=== PATIENT | male | born 1945 | race Caucasian/White ===

== ENCOUNTER → 2016-12-08 | Outpatient (CLI) | payer MEDICARE, OTHER ==
[2016-12-08 08:53] LABS: ABSOLUTE BASOPHILS # (AUTO) 0.1 10^3/uL (0.0-0.2); ABSOLUTE EOSINOPHILS # (AUTO) 0.2 10^3/uL (0.0-0.6); ABSOLUTE LYMPHOCYTES (AUTO) 1.1 10^3/uL (0.5-4.7); ABSOLUTE MONOCYTES (AUTO) 0.4 10^3/uL (0.1-1.4); ABSOLUTE NEUT (AUTO) 3.2 10^3/uL (1.7-8.2); BASOPHILS % (AUTO) 1.1 % (0-2); EOSINOPHILS % (AUTO) 4.6 % (0-6); LYMPHOCYTES % (AUTO) 22.4 % (13-45); MEAN CORPUSCULAR HEMOGLOBIN 28.9 pg (27.0-33.4); MEAN CORPUSCULAR HGB CONC 33.4 g/dL (32.0-36.0); MEAN CORPUSCULAR VOLUME 87 fl (80-97); MONOCYTES % (AUTO) 8.7 % (3-13); RED CELL DISTRIBUTION WIDTH 13.4 % (11.5-14.0); SEGMENTED NEUTROPHILS % (AUTO) 63.2 % (42-78)
[2016-12-08 09:19] LABS: ALANINE AMINOTRANSFERASE 25 U/L (21-72); ALBUMIN 4.3 g/dL (3.5-5.0); ALKALINE PHOSPHATASE 68 U/L (38-126); ANION GAP 12 (5-19); ASPARTATE AMINO TRANSFERASE 19 U/L (17-59); BILIRUBIN,TOTAL 0.7 mg/dL (0.2-1.3); BLOOD UREA NITROGEN 14 mg/dL (7-20); CALCIUM 9.7 mg/dL (8.4-10.2); CARBON DIOXIDE 34 mmol/L (22-30); CHLORIDE 100 mmol/L (98-107); CHOLESTEROL 119.27 mg/dL (0-200); CREATININE RESULT 0.99 mg/dL (0.52-1.25); Direct HDL 37 mg/dL (>40); GLUCOSE 93 mg/dL (75-110); POTASSIUM 4.3 mmol/L (3.6-5.0); SODIUM 145.8 mmol/L (137-145); TOTAL PROTEIN 6.8 g/dL (6.3-8.2); TRIGLYCERIDES 129 mg/dL (<150)
[2016-12-08 09:25] LABS: ERYTHROCYTE SEDIMENTATION RATE 16 mm/hr (0-20)
[2016-12-08 09:30] LABS: DIRECT LDL 65 mg/dL (<100)
[2016-12-09 13:38] LABS: JO-1 ANTIBODY <0.2 AI (0.0-0.9)
== END ==
LOC: OD 07:35
DX: E11.9 Type 2 diabetes mellitus without complications (principal); E78.5 Hyperlipidemia, unspecified; D64.9 Anemia, unspecified; G20 Parkinson's disease; G90.3 Multi-system degeneration of the autonomic nervous system; K21.9 Gastro-esophageal reflux disease without esophagitis; Z79.899 Other long term (current) drug therapy
CPT/HCPCS: 36415; 80053; 80061; 82607; 82728; 82746; 83036; 83540; 83550; 84153; 84443; 85025; 85045; 85652; 86225; 86235; 86592

== ENCOUNTER → 2016-12-10 | Outpatient (CLI) | payer MEDICARE, OTHER | LOC: RAD 07:53 | DX: G20 Parkinson's disease (principal) | CPT/HCPCS: 70553; A9577 ==

== ENCOUNTER → 2017-02-11 | Outpatient (CLI) | payer MEDICARE, OTHER ==
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
== END ==
LOC: RAD 08:18
PROVIDERS: ATTEND Specialist
DX: R47.02 Dysphasia (principal); K21.9 Gastro-esophageal reflux disease without esophagitis; J45.909 Unspecified asthma, uncomplicated; E11.9 Type 2 diabetes mellitus without complications; M13.80 Other specified arthritis, unspecified site; Z86.73 Personal history of transient ischemic attack (TIA), and cerebral infarction without residual deficits
CPT/HCPCS: 74230; 92611; G8996; G8997; G8998

== ENCOUNTER → 2017-02-25 | Outpatient (CLI) | payer MEDICARE, OTHER ==
[2017-02-25 08:42] LABS: ANION GAP 13 (5-19); BLOOD UREA NITROGEN 21 mg/dL (7-20); CALCIUM 9.4 mg/dL (8.4-10.2); CARBON DIOXIDE 31 mmol/L (22-30); CHLORIDE 102 mmol/L (98-107); CHOLESTEROL 142.51 mg/dL (0-200); CREATININE RESULT 1.06 mg/dL (0.52-1.25); Direct HDL 43 mg/dL (>40); GLUCOSE 97 mg/dL (75-110); POTASSIUM 4.3 mmol/L (3.6-5.0); TRIGLYCERIDES 159 mg/dL (<150)
[2017-02-25 08:58] LABS: DIRECT LDL 65 mg/dL (<100)
[2017-02-25 09:01] LABS: VLDL CHOLESTEROL 31.8 mg/dL (10-31)
== END ==
LOC: OD 07:33
PROVIDERS: ATTEND Internal Medicine Cardiovascular Disease
DX: I63.9 Cerebral infarction, unspecified (principal); I95.1 Orthostatic hypotension
CPT/HCPCS: 36415; 80048; 80061

== ENCOUNTER 2017-03-23 07:06 | Day surgery (SDC) | payer MEDICARE, OTHER ==
[~2017-03-23 07:06] MED LIST: BUPIVACAINE HCL 0.75% INJ/PF (7.5 MG/1 ML) 10 ML SDV OD PRN; KETOROLAC TROMETHAMINE 0.45% 4 DROP/0.4 ML DROPERETTE OD PRN; LIDOCAINE 4% INJ/PF (40 MG/ML) 5 ML AMPUL OD PRN
[2017-03-23] MEDS ORDERED: PHENYLEPHRINE/KETOROLAC 1%-0.3% 4 ML VIAL ONE (07:35)
[2017-03-23] MEDS ORDERED: CHONDR SU A NA/HYALUR INTRAOC KIT (SURGICARE) ONE (07:36)
[2017-03-23] MEDS: CYCLOPENTOLATE 0.2%/PHENYLEPHRINE 1% OPH SOLN 2 ML OD PRN ×3 (07:46→08:12)
[2017-03-23] MEDS: TROPICAMIDE 1% OPH SOLN 3 ML OD PRN ×3 (07:46→08:13)
[2017-03-23] MEDS: BESIFLOXACIN HCL 0.6% OPH SUSP 5 ML BOTTLE OD PRN ×4 (07:47→09:04)
[2017-03-23] MEDS: TETRACAINE HCL 0.5% OPH SOLN 0.6 ML DROPERETTE OD PRN ×2 (07:48→08:13)
[2017-03-23] MEDS ORDERED: FENTANYL CITRATE INJ/PF 100 MCG/2 ML AMPUL ONE (08:15)
[2017-03-23] MEDS ORDERED: MIDAZOLAM 2 MG/2 ML INJ ONE (08:15)
--- NOTE | 2017-03-23 09:48 | [facility] DISCHARGE SUMMARY E ---
[facility] Discharge Summary NAME: DEANDRE NASH AGE: 71Y ADMITTED: 03/23/2017 DISCHARGED: 03/23/2017 HISTORY: The patient is a 71-year-old gentleman who underwent uneventful cataract extraction with intraocular lens implant of the right eye on 03/23/2017. DISPOSITION: He will be discharged to home. DISCHARGE INSTRUCTIONS: He is instructed to resume preoperative medications, take Tylenol as needed for discomfort, to keep his eye shielded. To use Besivance, Durezol, and Ilevro at 3 p.m. and 8 p.m. Follow up in my office in 1 day. DICTATING PHYSICIAN: MICHELLE BURKS M.D. [id number] PHY#: [id number] ID: [id number] JOB#: [id number] ACCT: [id number] cc:MICHELLE BURKS M.D. >
--- NOTE | 2017-04-02 12:59 | [facility] OPERATIVE REPORT E ---
[facility] Operative Report NAME: DEANDRE NASH AGE: 71Y DATE OF SURGERY: 03/23/2017 ROOM: PREOPERATIVE DIAGNOSIS: CATARACT RIGHT EYE. POSTOPERATIVE DIAGNOSIS: CATARACT RIGHT EYE. PROCEDURE; Phacoemulsification with toric intraocular lens implant, right eye. SURGEON; MICHELLE BURKS MD ANESTHESIA: Topical with MAC. INDICATIONS FOR SURGERY: Difficulty reading small print on medicine bottles and night driving. Best corrected visual acuity 20/40. PROCEDURE: The patient was brought to the Operating Room and under topical anesthesia the 0 ,270 and 180 degrees were marked on the cornea with a marking level. the patient was placed in a recling position. Following tetracaine drops, topical anesthesia was administered. This consisted of instrument wipe pledgets soaked in a solution of 4% Xylocaine mixed with 0.75% Marcaine in a 1:2 ratio. A 2 x 1 cm pledget was placed in the superior fornix. A 1 x 1 cm pledget was placed in the inferior fornix. The eye was patched shut for 5 minutes. The patch was removed. The eye was sterilely prepped and draped in the usual manner. Lid speculum was placed in the eye. The pledgets were removed and 4-0 black silk sutures were placed around the superior and the inferior rectus muscles to be used as traction. A conjunctival peritomy was made at the 135 degree position. Hemostasis was obtained with bipolar cautery. A posterior limbal groove was created using a crescent knife and dissected anteriorly towards the cornea. A sharp point blade was used to create a paracentesis site at the 2 o'clock position. A 2.4-mm keratome was used to enter the anterior chamber through the groove. Viscoelastic was injected into the anterior chamber. An anterior capsulotomy was performed using Utrata forceps in a capsulorrhexis fashion. Hydrodissection and hydrodelineation were performed. Phacoemulsification was performed in [id number] technique. A total of 1 minute 7 seconds phaco time was used. Following this, the I/A unit was used to remove residual cortex. Viscoelastic was injected into the capsular bag. Intraocular lens model [id number], 21.0 diopters, serial number [id number], was placed in the capsular bag and rotated within 10 degrees of the final axis. Final axis was 170 degrees. The I/A unit was used to remove residual viscoelastic. The wound was seen to be watertight under high and low pressure, and no sutures were placed. The intraocular lens was well centered. The pressure was adjusted in the eye to normal pressure. The 4-0 black silk sutures and lid speculum were removed. The eye was shielded after Besivance drops were placed. The patient tolerated the procedure well and was sent to the Recovery Room in good condition. DICTATING PHYSICIAN: MICHELLE BURKS M.D. [id number] PHY#: [id number] ID: [id number] JOB#: [id number] ACCT: [id number] cc:MICHELLE BURKS M.D. > MTDD
== END 2017-03-23 09:54 | disposition home or self-care (01) ==
LOC: SC 07:06
PROVIDERS: ATTEND Ophthalmology
PROC: 08RJ3JZ Replacement of Right Lens with Synthetic Substitute, Percutaneous Approach (ICD-10-PCS; principal; 2017-03-23 08:30)
DX: H25.813 Combined forms of age-related cataract, bilateral (principal); H04.123 Dry eye syndrome of bilateral lacrimal glands; E11.9 Type 2 diabetes mellitus without complications; H35.363 Drusen (degenerative) of macula, bilateral; J45.909 Unspecified asthma, uncomplicated; K21.9 Gastro-esophageal reflux disease without esophagitis; Z79.51 Long term (current) use of inhaled steroids; Z79.02 Long term (current) use of antithrombotics/antiplatelets; Z79.84 Long term (current) use of oral hypoglycemic drugs; Z79.899 Other long term (current) drug therapy
CPT/HCPCS: 66984; 82962; V2787; J2250; J3490 ×3; A9270; J3010; C9447; 142

== ENCOUNTER → 2017-05-19 | Outpatient (CLI) | payer MEDICARE, OTHER ==
[2017-05-20 07:44] LABS: HEPATITIS C VIRUS AB <0.1 s/co ratio (0.0-0.9)
== END ==
LOC: OD 12:00
PROVIDERS: ATTEND Internal Medicine
DX: Z11.59 Encounter for screening for other viral diseases (principal)
CPT/HCPCS: 36415; 86803; 86804

== ENCOUNTER → 2017-09-10 | Outpatient (CLI) | payer MEDICARE, OTHER ==
[2017-09-10 15:15] LABS: BLOOD PARASITE THIN SMEAR PLASMODIUM/BABESIA
[2017-09-11 15:08] LABS: BLOOD PARASITE THICK SMEAR PLASMODIUM/BABESIA
[2017-09-14 11:00] LABS: BLOOD PARASITE SCREEN RESULT PLASMODIUM/BABESIA
== END ==
LOC: LAB 14:05
PROVIDERS: ATTEND Nurse Practitioner Community Health
DX: B54 Unspecified malaria (principal)
CPT/HCPCS: 36415; 87015; 87207

== ENCOUNTER → 2017-10-19 | Outpatient (CLI) | payer MEDICARE, OTHER ==
[2017-10-19 11:15] LABS: ABSOLUTE BASOPHILS # (AUTO) 0.1 10^3/uL (0.0-0.2); ABSOLUTE EOSINOPHILS # (AUTO) 0.3 10^3/uL (0.0-0.6); ABSOLUTE LYMPHOCYTES (AUTO) 1.6 10^3/uL (0.5-4.7); ABSOLUTE MONOCYTES (AUTO) 0.4 10^3/uL (0.1-1.4); ABSOLUTE NEUT (AUTO) 2.9 10^3/uL (1.7-8.2); BASOPHILS % (AUTO) 1.2 % (0-2); HEMATOCRIT 36.7 % (37.9-51.0); HEMOGLOBIN 12.5 g/dL (13.5-17.0); HGB HCT DIFFERENCE 0.8; LYMPHOCYTES % (AUTO) 31.4 % (13-45); MEAN CORPUSCULAR HEMOGLOBIN 28.8 pg (27.0-33.4); MEAN CORPUSCULAR VOLUME 85 fl (80-97); MONOCYTES % (AUTO) 6.9 % (3-13); RED BLOOD COUNT 4.34 10^6/uL (4.35-5.55); RED CELL DISTRIBUTION WIDTH 14.2 % (11.5-14.0); SEGMENTED NEUTROPHILS % (AUTO) 55.5 % (42-78); WHITE BLOOD COUNT 5.2 10^3/uL (4.0-10.5)
[2017-10-19 11:37] LABS: CHOLESTEROL 158.61 mg/dL (0-200); Direct HDL 43 mg/dL (>40); TRIGLYCERIDES 174 mg/dL (<150)
[2017-10-19 11:39] LABS: ALANINE AMINOTRANSFERASE 34 U/L (21-72); ALKALINE PHOSPHATASE 58 U/L (38-126); ANION GAP 11 (5-19); ASPARTATE AMINO TRANSFERASE 26 U/L (17-59); BILIRUBIN,DIRECT 0.2 mg/dL (0.0-0.4); BILIRUBIN,TOTAL 0.5 mg/dL (0.2-1.3); BLOOD UREA NITROGEN 12 mg/dL (7-20); CALCIUM 9.3 mg/dL (8.4-10.2); CARBON DIOXIDE 33 mmol/L (22-30); CHLORIDE 101 mmol/L (98-107); CREATININE RESULT 1.05 mg/dL (0.52-1.25); GLUCOSE 92 mg/dL (75-110); POTASSIUM 3.8 mmol/L (3.6-5.0); SODIUM 144.5 mmol/L (137-145); TOTAL PROTEIN 6.5 g/dL (6.3-8.2)
[2017-10-19 11:47] LABS: DIRECT LDL 84 mg/dL (<100)
[2017-10-19 11:53] LABS: VLDL CHOLESTEROL 34.8 mg/dL (10-31)
[2017-10-20 11:40] LABS: CREATININE URINE 163.7 mg/dL (Not Estab.); MICROALBUMIN URINE 27.6 ug/mL (Not Estab.)
== END ==
LOC: OD 10:13
PROVIDERS: ATTEND Internal Medicine
DX: I10 Essential (primary) hypertension (principal); E11.9 Type 2 diabetes mellitus without complications; E53.8 Deficiency of other specified B group vitamins; E78.5 Hyperlipidemia, unspecified; G20 Parkinson's disease
CPT/HCPCS: 36415; 80053; 80061; 82043; 82570; 82607; 83036; 85025; 86255

== ENCOUNTER 2018-02-08 10:40 | Day surgery (SDC) | payer MEDICARE, OTHER ==
[~2018-02-08 10:40] MED LIST changes: -BUPIVACAINE HCL 0.75% INJ/PF (7.5 MG/1 ML) 10 ML SDV OD PRN; +BUPIVACAINE HCL 0.75% INJ/PF (7.5 MG/1 ML) 10 ML SDV OS PRN; +CHONDR SU A NA/HYALUR INTRAOC KIT (SURGICARE) ONE; +EPINEPHRINE INJ/PF 1 MG/1 ML AMPULE ONE; -KETOROLAC TROMETHAMINE 0.45% 4 DROP/0.4 ML DROPERETTE OD PRN; +KETOROLAC TROMETHAMINE 0.45% 4 DROP/0.4 ML DROPERETTE OS PRN; +LIDOCAINE 1% INJ-PF (10 MG/ML) 30 ML SDV ONE; -LIDOCAINE 4% INJ/PF (40 MG/ML) 5 ML AMPUL OD PRN; +LIDOCAINE 4% INJ/PF (40 MG/ML) 5 ML AMPUL OS PRN
[2018-02-08] MEDS: TROPICAMIDE 1% OPH SOLN 3 ML OS PRN ×3 (11:03→11:26)
[2018-02-08] MEDS: CYCLOPENTOLATE 0.2%/PHENYLEPHRINE 1% OPH SOLN 2 ML OS PRN ×3 (11:03→11:26)
[2018-02-08] MEDS ORDERED: FENTANYL CITRATE INJ/PF 100 MCG/2 ML AMPUL ONE (11:04)
[2018-02-08] MEDS: BESIFLOXACIN HCL 0.6% OPH SUSP 5 ML BOTTLE OS PRN ×3 (11:04→11:57)
[2018-02-08] MEDS ORDERED: MIDAZOLAM 2 MG/2 ML INJ ONE (11:04)
[2018-02-08] MEDS: TETRACAINE HCL 0.5% OPH SOLN 0.6 ML DROPERETTE OS PRN ×2 (11:05→11:27)
--- NOTE | 2018-02-08 12:24 | [facility] DISCHARGE SUMMARY E ---
[facility] Discharge Summary NAME: DEANDRE NASH AGE: 72Y ADMITTED: 02/08/2018 DISCHARGED: FINAL DIAGNOSIS: CATARACT, LEFT EYE. HOSPITAL COURSE: The patient is a 72-year-old gentleman who underwent uneventful cataract extraction with Toric intraocular lens implant, left eye. He will be discharged to home. He is instructed to resume preoperative medications, take Tylenol as needed for discomfort, to keep his eye shielded. Use Besivance, Durezol, and Ilevro at 3 p.m. and 8 p.m. To follow up in my office in 1 day. DICTATING PHYSICIAN: MICHELLE BURKS M.D. [id number] PHY#: [id number] ID: [id number] JOB#: [id number] ACCT: [id number] cc:MICHELLE BURKS M.D. >
--- NOTE | 2018-02-08 12:25 | [facility] OPERATIVE REPORT E ---
[facility] Operative Report NAME: DEANDRE NASH AGE: 72Y DATE OF SURGERY: 02/08/2018 ROOM: [facility] Operative Report PREOPERATIVE DIAGNOSIS: CATARACT, LEFT EYE. POSTOPERATIVE DIAGNOSIS: CATARACT, LEFT EYE. PROCEDURE PERFORMED: PHACOEMULSIFICATION WITH TORIC INTRAOCULAR LENS, LEFT EYE. SURGEON: MICHELLE BURKS MD ANESTHESIA: TOPICAL WITH MAC. INDICATIONS FOR SURGERY: Difficulty with nighttime driving due to glare. Best corrected visual acuity 20/40. PROCEDURE: Prior to the surgery, the patient was placed in the seated position and a 0, 270, and 180 degree axes of the eye were marked using a marking level. Prior to placing the lens implant, the 169-degree axis was marked on the eye and the lens was centered at this axis. The patient was brought to the Operating Room and placed on the operative table. Following tetracaine drops, topical anesthesia was administered. This consisted of instrument wipe pledgets soaked in a solution of 4% Xylocaine mixed with 0.75% Marcaine in a 1:2 ratio. A 2 x 1 cm pledget was placed in the superior fornix. A 1 x 1 cm pledget was placed in the inferior fornix. The eye was patched shut for 5 minutes. The patch was removed. The eye was sterilely prepped and draped in the usual manner. Lid speculum was placed in the eye. The pledgets were removed. 4-0 black silk sutures were placed around the superior and the inferior rectus muscles to be used as traction. A conjunctival peritomy was made at the 10 o'clock position. Hemostasis was obtained with bipolar cautery. A posterior limbal groove was created using a crescent knife and dissected anteriorly towards the cornea. A sharp point blade was used to create a paracentesis site at the 2 o'clock position. A 2.4 mm keratome was used to enter the anterior chamber through the groove. Viscoelastic was injected into the anterior chamber. An anterior capsulotomy was performed using Utrata forceps in a capsulorrhexis fashion. Hydrodissection and hydrodelineation were performed. Phacoemulsification was performed in ynyrex-[id number]-megqfmr technique. A total of 3.51 CDE phaco time was used. Following this, the I/A unit was used to remove residual cortex. Viscoelastic was injected into the capsular bag. Intraocular lens model [id number], 21.0 diopters, serial number [id number] was placed in the capsular bag. The I/A unit was used to remove residual viscoelastic. The wound was seen to be watertight under high and low pressure, and no sutures were placed. The intraocular lens was well centered. The pressure was adjusted in the eye to normal pressure. The 4-0 black silk sutures and lid speculum were removed. The eye was shielded after Besivance drops were placed. The patient tolerated the procedure well and was sent to the Recovery Room in good condition. DICTATING PHYSICIAN: MICHELLE BURKS M.D. DICTATING PHYSICIAN: MICHELLE BURKS M.D. [id number] PHY#: [id number] ID: [id number] JOB#: [id number] ACCT: [id number] cc:MICHELLE BURKS M.D. >
== END 2018-02-08 12:55 | disposition home or self-care (01) ==
LOC: SC 10:40
PROVIDERS: ATTEND Ophthalmology
PROC: 08RK3JZ Replacement of Left Lens with Synthetic Substitute, Percutaneous Approach (ICD-10-PCS; principal; 2018-02-08 12:00)
DX: H25.812 Combined forms of age-related cataract, left eye (principal); Z96.1 Presence of intraocular lens; J45.909 Unspecified asthma, uncomplicated; I10 Essential (primary) hypertension; K21.9 Gastro-esophageal reflux disease without esophagitis; E11.9 Type 2 diabetes mellitus without complications; Z79.84 Long term (current) use of oral hypoglycemic drugs; Z79.51 Long term (current) use of inhaled steroids; Z79.899 Other long term (current) drug therapy
CPT/HCPCS: 66984; 82962; V2787; J3490 ×4; A9270; J0171; J3010; 142; J2250

== ENCOUNTER 2018-10-30 14:12 | Observation (INO) | payer MEDICARE, OTHER ==
[2018-10-30 14:48] LABS: ABSOLUTE BASOPHILS # (AUTO) 0.1 10^3/uL (0.0-0.2); ABSOLUTE EOSINOPHILS # (AUTO) 0.3 10^3/uL (0.0-0.6); ABSOLUTE LYMPHOCYTES (AUTO) 1.8 10^3/uL (0.5-4.7); ABSOLUTE MONOCYTES (AUTO) 0.6 10^3/uL (0.1-1.4); ABSOLUTE NEUT (AUTO) 3.8 10^3/uL (1.7-8.2); EOSINOPHILS % (AUTO) 5.3 % (0-6); HEMATOCRIT 38.1 % (37.9-51.0); HEMOGLOBIN 12.6 g/dL (13.5-17.0); LYMPHOCYTES % (AUTO) 27.1 % (13-45); MEAN CORPUSCULAR HEMOGLOBIN 27.3 pg (27.0-33.4); MEAN CORPUSCULAR HGB CONC 33.1 g/dL (32.0-36.0); MEAN CORPUSCULAR VOLUME 82 fl (80-97); MONOCYTES % (AUTO) 8.8 % (3-13); PLATELET COUNT 228 10^3/uL (150-450); RED BLOOD COUNT 4.63 10^6/uL (4.35-5.55); RED CELL DISTRIBUTION WIDTH 14.3 % (11.5-14.0); SEGMENTED NEUTROPHILS % (AUTO) 57.8 % (42-78); TOTAL CELLS COUNTED % (AUTO) 100 %; WHITE BLOOD COUNT 6.6 10^3/uL (4.0-10.5)
--- NOTE | 2018-10-30 14:52 | ER Document Report ---
ED General - General Chief Complaint: Chest Pain > 30 Stated Complaint: CHEST PAIN Time Seen by Provider: 10/30/18 14:20 Notes: Patient is a 73-year-old male with history of neurocardiogenic syncope, diabetes mellitus, hyperlipidemia that presents to the emergency department for chief complaint of chest pain. The patient reports that the pain started around 2 PM today, he felt lightheaded, and that he was having 1 of his near syncopal epis odes which are frequent for him however this 1 was lasting longer. The currently rate the pain as 3 out of 10, and described as ache in his left chest. They have had associated flushed sensation, and lightheadedness. He states when this came on initially, he did fall to the ground, but did not have a syncopal episode, just had to get down because he was afraid he would pass out, he did not strike his head, or have any neck injury. Denies any nausea or vomiting or shortness of breath. Their risk factors for heart disease include hyperlipidemia, diabetes mellitus. Past Medical History: Parkinson's disease, hyperlipidemia, diabetes mellitus, neurocardiogenic syncope Past Surgical History: Cataract surgery, hernia repair x3 Social History: Admits to chewing tobacco, denies alcohol or drug use. Family History: Reviewed and noncontributory for presenting illness Allergies: Reviewed, see documented allergy list. REVIEW OF SYSTEMS: Other than noted above, the 12 point review of systems was reviewed with the patient and were negative, all pertinent findings are included in the HPI. PHYSICAL EXAMINATION: Vital signs reviewed, nursing noted reviewed. GENERAL: Elderly male, well-developed, nontoxic-appearing HEAD: Atraumatic, normocephalic. EYES: Eyes appear normal, extraocular movements intact, sclera anicteric, conjunctiva are normal. ENT: nares patent, oropharynx clear without exudates. Moist mucous membranes. NECK: Normal range of motion, supple without lymphadenopathy LUNGS: Breath sounds clear to auscultation bilaterally and equal. No wheezes rales or rhonchi. No chest wall tenderness HEART: Regular rate and rhythm without murmurs ABDOMEN: Soft, nontender, normoactive bowel sounds. No rebound, guarding, or rigidity. No masses appreciated. EXTREMITIES: Nontender, good range of motion, no pitting or edema. NEUROLOGICAL: No focal neurological deficits. Moves all extremities spontaneously Motor and sensory grossly intact on exam. PSYCH: Normal mood, normal affect. SKIN: Warm, Dry, normal turgor, no rashes or lesions noted on exposed skin TRAVEL OUTSIDE OF THE [place] IN LAST 30 DAYS: No COUNTRY TRAVELED TO/FROM: [place] - Related Data Allergies/Adverse Reactions: feathers Allergy (Severe, Verified 03/23/17 07:57) Difficulty breathing shellfish derived Allergy (Severe, Verified 02/07/18 10:32) Anaphylaxis Benzodiazepines Adverse Reaction (Severe, Verified 03/23/17 07:57) SEVERE MIGRAINES midodrine Adverse Reaction (Severe, Verified 03/23/17 08:23) LOW HEART RATE Sulfa (Sulfonamide Antibiotics) Adverse Reaction (Severe, Verified 03/23/17 07: 57) N/V/D ibuprofen [From Motrin] Adverse Reaction (Mild, Verified 03/23/17 07:57) AGITATION feathers Allergy (Severe, Uncoded 03/23/17 07:57) BREATHING DIFFICULTIES Past Medical History - Social History Smoking Status: Never Smoker Family History: CAD - Past Medical History Cardiac Medical History: Reports: Hx Hypercholesterolemia, Hx Heart Murmur Denies: Hx Heart Attack, Hx Hypertension Pulmonary Medical History: Reports: Hx Asthma - LAST USED INHALER APPROX 6 MONTHS AGO, Hx Bronchitis Denies: Hx Tuberculosis Neurological Medical History: Reports: Hx Cerebrovascular Accident - NO RESIDUAL. Denies: Hx Seizures Endocrine Medical History: Reports: Hx Diabetes Mellitus Type 2 GI Medical History: Reports: Hx Gastroesophageal Reflux Disease. Denies: Hx He patitis, Hx Hiatal Hernia, Hx Ulcer Musculoskeletal Medical History: Reports Hx Arthritis - hips, back Infectious Medical History: Denies: Hx Hepatitis Past Surgical History: Reports: Hx Cardiac Catheterization - Negative cardiac cath in about October 2010, Hx Herniorrhaphy - as a child, Hx Tonsillectomy. Denies: Hx Appendectomy, Hx Open Heart Surgery, Hx Pacemaker - Immunizations Hx Diphtheria, Pertussis, Tetanus Vaccination: Yes Hx Pneumococcal Vaccination: 11/01/12 Physical Exam - Vital signs Vitals: Pulse Ox 96 10/30/18 14:26 Course - Re-evaluation Re-evalutation: Patient seen and examined vital signs reviewed. Laboratory data and imaging were ordered as appropriate for the patient's presenting symptoms and complaint, with consideration of any critical or life threatening conditions that may be associated with their obtained history and exam as noted above. Patient was treated with aspirin 324 mg prior to EMS arrival. Results were reviewed when available and demonstrated negative initial troponin, EKG negative for acute ischemia, blood work otherwise unremarkable, chest x-ray negative. The patient was re-evaluated and was stable Evaluation was most consistent with chest pain, and a high risk patient, heart score was 6 based on age, story, and risk factors Results were discussed with the patient at this point after careful consideration I feel that that patient should be admitted to the hospital. This was discussed with the patient that it is in the best interest for their care to be admitted for further evaluation and management. Patient agreed with this plan of care. A call was placed to the admitted physician, Deacon Welch who graciously accepted the patient onto their service. *Note is created using voice recognition software and may contain spelling, syntax or grammatical errors. Laboratory 10/30/18 10/30/18 10/30/18 14:31 14:31 14:31 WBC 6.6 RBC 4.63 Hgb 12.6 L Hct 38.1 MCV 82 MCH 27.3 MCHC 33.1 RDW 14.3 H Plt Count 228 Seg Neutrophils % 57.8 Lymphocytes % 27.1 Monocytes % 8.8 Eosinophils % 5.3 Basophils % 1.0 Absolute Neutrophils 3.8 Absolute Lymphocytes 1.8 Absolute Monocytes 0.6 Absolute Eosinophils 0.3 Absolute Basophils 0.1 Sodium 143.4 Potassium 4.0 Chloride 103 Carbon Dioxide 31 H Anion Gap 9 BUN 17 Creatinine 0.85 Est GFR ( Amer) > 60 Est GFR (Non-Af Amer) > 60 Glucose 120 H Calcium 9.3 Total Bilirubin 0.5 Direct Bilirubin 0.3 Neonat Total Bilirubin Not Reportable Neonat Direct Bilirubin Not Reportable Neonat Indirect Bili Not Reportable AST 26 ALT 24 Alkaline Phosphatase 45 Troponin I < 0.012 Total Protein 7.1 Albumin 4.1 Chest X-Ray 10/30/18 14:16 IMPRESSION: NO SIGNIFICANT RADIOGRAPHIC FINDING IN THE CHEST. - Vital Signs Vital signs: Temp Pulse Resp BP Pulse Ox 98.5 F 51 L 18 132/71 H 99 10/30/18 17:24 10/30/18 17:24 10/30/18 17:24 10/30/18 17:24 10/30/18 17:24 - Laboratory Result Diagrams: 10/30/18 14:31 10/30/18 14:31 Laboratory results interpreted by me: 10/30/18 10/30/18 14:31 14:31 Hgb 12.6 L RDW 14.3 H Carbon Dioxide 31 H Glucose 120 H - EKG Interpretation by Me Additional EKG results interpreted by me: EKG demonstrates sinus rhythm with a ventricular rate of 58 bpm, left axis deviation, QTC 437 ms, presence of right bundle branch block, no evidence of acute ischemia on this EKG. This is compared to prior EKG from 05/13/2014, where a right bundle branch block was also present, no acute changes since then. Discharge - Discharge Clinical Impression: Chest pain Qualifiers: Chest pain type: unspecified Qualified Code(s): R07.9 - Chest pain, unspecified Fall Qualifiers: Encounter type: initial encounter Qualified Code(s): W19.XXXA - Unspecified fall, initial encounter Condition: Stable Disposition: ADMITTED OBSERVATION Admitting Provider: Hospitalist - Deacon Welch Unit Admitted: Telemetry
[2018-10-30 15:02] LABS: ALANINE AMINOTRANSFERASE 24 U/L (21-72); ALBUMIN 4.1 g/dL (3.5-5.0); ALKALINE PHOSPHATASE 45 U/L (38-126); ANION GAP 9 (5-19); ASPARTATE AMINO TRANSFERASE 26 U/L (17-59); BILIRUBIN,DIRECT 0.3 mg/dL (0.0-0.4); BILIRUBIN,TOTAL 0.5 mg/dL (0.2-1.3); BLOOD UREA NITROGEN 17 mg/dL (7-20); CALCIUM 9.3 mg/dL (8.4-10.2); CARBON DIOXIDE 31 mmol/L (22-30); CHLORIDE 103 mmol/L (98-107); GLUCOSE 120 mg/dL (75-110); SODIUM 143.4 mmol/L (137-145); TOTAL PROTEIN 7.1 g/dL (6.3-8.2)
--- NOTE | 2018-10-30 15:22 | RADIOLOGY REPORT (SQ) ---
EXAM DESCRIPTION: CHEST SINGLE VIEW COMPLETED DATE/TIME: 10/30/2018 3:08 pm REASON FOR STUDY: bed 20 cp COMPARISON: 2013. NUMBER OF VIEWS: One view. TECHNIQUE: Single frontal radiographic view of the chest acquired. LIMITATIONS: None. FINDINGS: LUNGS AND PLEURA: No opacities, masses or pneumothorax. No pleural effusion. MEDIASTINUM AND HILAR STRUCTURES: No masses. Contour normal. HEART AND VASCULAR STRUCTURES: Heart normal in size. Normal vasculature. BONES: No acute findings. HARDWARE: None in the chest. OTHER: No other significant finding. IMPRESSION: NO SIGNIFICANT RADIOGRAPHIC FINDING IN THE CHEST. TECHNICAL DOCUMENTATION: JOB ID: [id number] [employer]- All Rights Reserved Reading location - IP/workstation name: [email or web address]
--- NOTE | 2018-10-30 19:00 | PDOC H&P ---
History of Present Illness Admission Date/PCP: 10/30/18 16:03 PAL CRAWLEY MD Patient complains of: Chest pain, syncope. History of Present Illness: DEANDRE NASH is a 73 year old male with a past medical history of Parkinson's times 2 years, diabetes mellitus, GERD, asthma, neurogenic syncope, PTSD. Patient reports having a syncopal episode when in the pantry of his home around 2 PM today. His reports that he lost consciousness for a few seconds. He reports some chest pain with left-sided numbness shortly after the syncopal episode. He denies diaphoresis. Chest pain is chronic in nature. At its worst was a 4.5 out of 10. Currently is a 2 out of 10. It is slowly relented over time, nothing in particular made it worse or better. He denies having a previous episode like this. He reports a past diagnosis of neurogenic syncope. He has recently seen a domestic freight forwarder 2 weeks ago. Prior to that he wear a Holter monitor for 2 weeks. He is scheduled to follow back up with his domestic freight forwarder in the next 1-2 weeks. He also follows with a neurologist, some as he has a diagnosis of Parkinson's times 2 years. During my evaluation he is lying comfortably in bed. He denies symptoms of orthopnea, PND, he speaks in full sentences. Denies fever, chills, sick contacts. He seems to be active and following up on his health care. He reports being diagnosed with neurogenic syncope since the early s. He seems to be a reliable historian. He does describe symptoms of significant PTSD from the past. We discussed possibility of this playing a role in these episodes. Past Medical History Cardiac Medical History: Reports: Hyperlipidema, Heart Murmur Denies: Myocardial Infarction, Hypertension Pulmonary Medical History: Reports: Asthma - LAST USED INHALER APPROX 6 MONTHS AGO, Bronchitis Denies: Tuberculosis Neurological Medical History: Denies: Seizures Endocrine Medical History: Reports: Diabetes Mellitus Type 2 GI Medical History: Reports: Gastroesophageal Reflux Disease Denies: Hepatitis, Hiatal Hernia Musculoskeltal Medical History: Reports: Arthritis - hips, back Hematology: Reports: Anemia - HX OF Denies: Sickle Cell Disease Past Surgical History Past Surgical History: Reports: Cardiac Catheterization - Negative cardiac cath in about October 2010, Herniorrhaphy - as a child, Tonsillectomy Denies: Appendectomy, Pacemaker Social History Smoking Status: Never Smoker Frequency of Alcohol Use: None Hx Recreational Drug Use: No Hx Prescription Drug Abuse: No Family History Family History: CAD Parental Family History Reviewed: Yes Children Family History Reviewed: Yes Sibling(s) Family History Reviewed.: Yes Medication/Allergy Home Medications: Atorvastatin Calcium [Lipitor 10 mg Tablet] 10 mg PO QHS 10/30/18 Cetirizine HCl [Zyrtec 10 mg Tablet] 10 mg PO DAILY 10/30/18 Esomeprazole Magnesium 40 mg PO DAILY 10/30/18 Fludrocortisone Acetate [Florinef 0.1 mg Tablet] 0.1 mg PO BID 10/30/18 Fluticasone Propionate [Flonase Nasal [place] 50 Mcg/[place] 16 gm] 1 spray NASL DAILY 10/30/18 Gabapentin [Neurontin 100 mg Capsule] 100 mg PO Q6 10/30/18 Metformin HCl [Glumetza] 1,000 mg PO BID 10/30/18 Tramadol HCl [Ultram 50 mg Tablet] 50 mg PO Q6HP PRN 10/30/18 Allergies/Adverse Reactions: feathers Allergy (Severe, Verified 03/23/17 07:57) Difficulty breathing shellfish derived Allergy (Severe, Verified 02/07/18 10:32) Anaphylaxis Benzodiazepines Adverse Reaction (Severe, Verified 03/23/17 07:57) SEVERE MIGRAINES midodrine Adverse Reaction (Severe, Verified 03/23/17 08:23) LOW HEART RATE Sulfa (Sulfonamide Antibiotics) Adverse Reaction (Severe, Verified 03/23/17 07:57) N/V/D ibuprofen [From Motrin] Adverse Reaction (Mild, Verified 03/23/17 07:57) AGITATION feathers Allergy (Severe, Uncoded 03/23/17 07:57) BREATHING DIFFICULTIES Review of Systems Constitutional: PRESENT: as per HPI Eyes: ABSENT: visual disturbances Ears: ABSENT: hearing changes Cardiovascular: PRESENT: as per HPI Respiratory: PRESENT: as per HPI Gastrointestinal: ABSENT: abdominal pain, constipation, diarrhea, hematemesis, hematochezia, nausea, vomiting Genitourinary: ABSENT: dysuria, hematuria Musculoskeletal: ABSENT: joint swelling Integumentary: ABSENT: rash, wounds Neurological: ABSENT: abnormal gait, abnormal speech, confusion, dizziness, focal weakness, syncope Psychiatric: ABSENT: anxiety, depression, homidical ideation, suicidal ideation Endocrine: ABSENT: cold intolerance, heat intolerance, polydipsia, polyuria Hematologic/Lymphatic: ABSENT: easy bleeding, easy bruising Physical Exam Vital Signs: Temp Pulse Resp BP Pulse Ox 98.5 F 51 L 18 132/71 H 99 10/30/18 17:24 10/30/18 17:24 10/30/18 17:24 10/30/18 17:24 10/30/18 17:24 Intake & Output 10/29/18 10/30/18 10/31/18 06:59 06:59 06:59 Weight 69.4 kg General appearance: PRESENT: no acute distress, obese Head exam: PRESENT: atraumatic, normocephalic Eye exam: PRESENT: conjunctiva pink, EOMI, PERRLA. ABSENT: scleral icterus Ear exam: PRESENT: normal external ear exam Mouth exam: PRESENT: moist, tongue midline Teeth exam: PRESENT: other - no Teeth Respiratory exam: PRESENT: clear to auscultation tremaine. ABSENT: rales, rhonchi, wheezes Cardiovascular exam: PRESENT: RRR. ABSENT: diastolic murmur, rubs, systolic murmur Pulses: PRESENT: normal dorsalis pedis pul Vascular exam: PRESENT: normal capillary refill GI/Abdominal exam: PRESENT: normal bowel sounds, soft. ABSENT: distended, g uarding, mass, organolmegaly, rebound, tenderness Rectal exam: PRESENT: deferred Extremities exam: PRESENT: full ROM. ABSENT: calf tenderness, clubbing, pedal edema Musculoskeletal exam: PRESENT: full ROM, normal inspection Neurological exam: PRESENT: alert, awake, oriented to person, oriented to place, oriented to time, oriented to situation, CN II-XII grossly intact. ABSENT: motor sensory deficit Psychiatric exam: PRESENT: appropriate affect, normal mood. ABSENT: homicidal ideation, suicidal ideation Skin exam: PRESENT: dry, intact, warm. ABSENT: cyanosis, rash Results Laboratory Results: 10/30/18 14:31 10/30/18 14:31 10/30/18 10/30/18 14:31 14:31 WBC 6.6 RBC 4.63 Hgb 12.6 L Hct 38.1 MCV 82 MCH 27.3 MCHC 33.1 RDW 14.3 H Plt Count 228 Seg Neutrophils % 57.8 Lymphocytes % 27.1 Monocytes % 8.8 Eosinophils % 5.3 Basophils % 1.0 Absolute Neutrophils 3.8 Absolute Lymphocytes 1.8 Absolute Monocytes 0.6 Absolute Eosinophils 0.3 Absolute Basophils 0.1 Sodium 143.4 Potassium 4.0 Chloride 103 Carbon Dioxide 31 H Anion Gap 9 BUN 17 Creatinine 0.85 Est GFR ( Amer) > 60 Est GFR (Non-Af Amer) > 60 Glucose 120 H Calcium 9.3 Total Bilirubin 0.5 AST 26 ALT 24 Alkaline Phosphatase 45 Total Protein 7.1 Albumin 4.1 10/30/18 14:31 Troponin I < 0.012 Impressions: Chest X-Ray 10/30/18 14:16 IMPRESSION: NO SIGNIFICANT RADIOGRAPHIC FINDING IN THE CHEST. Assessment & Plan - Diagnosis (1) Syncope Is this a current diagnosis for this admission?: Yes (2) Diabetes Is this a current diagnosis for this admission?: Yes - Time Time Spent: Greater than 70 Minutes Critical Time spent with patient: 25-34 minutes Medications reviewed and adjusted accordingly: Yes Anticipated discharge: Home - Plan Summary Plan Summary: Chest pain -Troponins negative x2. EKG no signs of acute STEMI. -Monitor on telemetry. Most likely will be discharged tomorrow, and can follow- up with his domestic freight forwarder. -Daily aspirin and statin Syncope -As above, follow-up with his neurologist in domestic freight forwarder on discharge. Patient monitor telemetry. -Check labs Diabetes -Hold metformin. Check A1c. Check fingersticks before meals and at bedtime JANNETTE hose and Lovenox for prophylaxis.
--- NOTE | 2018-10-30 23:42 | EKG REPORT ---
SEVERITY:- ABNORMAL ECG - SINUS RHYTHM RBBB AND LAFB LEFT VENTRICULAR HYPERTROPHY : Confirmed by: Chu Munoz 30-Oct-2018 23:41:24
[2018-10-31] MEDS ORDERED: ONDANSETRON 4 MG TAB.RAPDIS PO PRN (10:19)
--- NOTE | 2018-10-31 13:54 | PDOC DISCHARGE SUMMARY ---
General - Admit/Disc Date/PCP Admission Date/Primary Care Provider: 10/30/18 16:03 PAL CRAWLEY MD Discharge Date: 10/31/18 - Discharge Diagnosis (1) Chest pain Is this a current diagnosis for this admission?: Yes Summary: Negative troponins. I asked the patient to sporadically check his blood pressure at home. Continue medications as previously ordered and follow-up with Dr. Gallagher. (2) Diabetes Is this a current diagnosis for this admission?: Yes Summary: Resume metformin and cardiac/diabetic diet. - Additional Information Discharge Diet: Cardiac, Diabetic Discharge Activity: Activity As Tolerated, Balance Activity w/Rest Home Medications: Atorvastatin Calcium [Lipitor 10 mg Tablet] 10 mg PO QHS 10/30/18 Cetirizine HCl [Zyrtec 10 mg Tablet] 10 mg PO DAILY 10/30/18 Esomeprazole Magnesium 40 mg PO DAILY 10/30/18 Fludrocortisone Acetate [Florinef 0.1 mg Tablet] 0.1 mg PO BID 10/30/18 Fluticasone Propionate [Flonase Nasal [place] 50 Mcg/[place] 16 gm] 1 spray NASL DAILY 10/30/18 Gabapentin [Neurontin 100 mg Capsule] 100 mg PO Q6 10/30/18 Metformin HCl [Glumetza] 1,000 mg PO BID 10/30/18 Tramadol HCl [Ultram 50 mg Tablet] 50 mg PO Q6HP PRN 10/30/18 History of Present Illness Patient complains of: Left-sided chest pain History of Present Illness: DEANDRE NASH is a 73 year old male who has a history of neurocardiogenic s yncope. He does get episodes of left-sided chest pain on occasion. They typically resolve quickly. This episode was prolonged. He also experienced some numbness in the left arm. He denies shortness of breath or diaphoresis. In addition when EMS arrived at the house his blood pressure was markedly elevated. He was admitted to observation status to rule out myocardial infarction. Hospital Course Hospital Course: Patient had a benign hospital course. His discomfort resolved. Serial troponin studies were below the detectable limit. The patient and his would prefer to have a stress test with the patient's terminal manager Dr. Gallagher at [facility]. He does have a scheduled follow-up in 2 weeks. I have asked that the stress test be scheduled as an outpatient with his terminal manager. Physical Exam Vital Signs: Temp Pulse Resp BP Pulse Ox 97.7 F 54 L 16 128/71 H 98 10/31/18 11:55 10/31/18 11:55 10/31/18 11:55 10/31/18 11:55 10/31/18 11:55 Intake & Output 10/30/18 10/31/18 11/01/18 06:59 06:59 06:59 Intake Total 466 Balance 466 Weight 69.4 kg General appearance: PRESENT: no acute distress, cooperative, well-developed Head exam: PRESENT: normocephalic Respiratory exam: PRESENT: clear to auscultation tremaine, symmetrical, unlabored. ABSENT: accessory muscle use, rales, rhonchi, wheezes Cardiovascular exam: PRESENT: RRR, +S1, +S2, systolic murmur - 2/6 GI/Abdominal exam: PRESENT: normal bowel sounds, soft. ABSENT: distended, tenderness Neurological exam: PRESENT: alert, awake, oriented to person, oriented to place, oriented to time, oriented to situation, CN II-XII grossly intact Psychiatric exam: PRESENT: appropriate affect, normal mood. ABSENT: agitated, anxious Focused psych exam: ABSENT: restlessness Results Laboratory Results: 10/30/18 14:31 10/30/18 14:31 10/30/18 10/30/18 14:31 14:31 WBC 6.6 RBC 4.63 Hgb 12.6 L Hct 38.1 MCV 82 MCH 27.3 MCHC 33.1 RDW 14.3 H Plt Count 228 Seg Neutrophils % 57.8 Lymphocytes % 27.1 Monocytes % 8.8 Eosinophils % 5.3 Basophils % 1.0 Absolute Neutrophils 3.8 Absolute Lymphocytes 1.8 Absolute Monocytes 0.6 Absolute Eosinophils 0.3 Absolute Basophils 0.1 Sodium 143.4 Potassium 4.0 Chloride 103 Carbon Dioxide 31 H Anion Gap 9 BUN 17 Creatinine 0.85 Est GFR ( Amer) > 60 Est GFR (Non-Af Amer) > 60 Glucose 120 H Calcium 9.3 Total Bilirubin 0.5 AST 26 ALT 24 Alkaline Phosphatase 45 Total Protein 7.1 Albumin 4.1 10/30/18 10/30/18 14:31 19:21 Troponin I < 0.012 < 0.012 Impressions: Chest X-Ray 10/30/18 14:16 IMPRESSION: NO SIGNIFICANT RADIOGRAPHIC FINDING IN THE CHEST. Qualifiers - * PATIENT BEING DISCHARGED WITH ANY OF THE FOLLOWING DIAGNOSIS: No Plan Discharge Plan: No changes in medication regimen. Check blood pressures at home intermittently. Outpatient stress test and follow-up appointment with Dr. Gallagher. Time Spent: Less than 30 Minutes
[2018-10-31 14:05] VITALS: BP 122/64
[2018-10-31 15:29] LABS: ANION GAP 8 (5-19); BLOOD UREA NITROGEN 14 mg/dL (7-20); CALCIUM 9.2 mg/dL (8.4-10.2); CARBON DIOXIDE 32 mmol/L (22-30); CHLORIDE 100 mmol/L (98-107); GLUCOSE 104 mg/dL (75-110); SODIUM 139.7 mmol/L (137-145)
== END 2018-10-31 15:26 | disposition home or self-care (01) ==
LOC: ER 14:12 → EH 16:03 → 5 17:19
PROVIDERS: ADMIT Family Medicine; ATTEND Family Medicine
DX: R07.9 Chest pain, unspecified (principal); E11.9 Type 2 diabetes mellitus without complications; R55 Syncope and collapse; R20.0 Anesthesia of skin; G20 Parkinson's disease; E78.5 Hyperlipidemia, unspecified; K21.9 Gastro-esophageal reflux disease without esophagitis; R03.0 Elevated blood-pressure reading, without diagnosis of hypertension; I45.10 Unspecified right bundle-branch block; W19.XXXA Unspecified fall, initial encounter; Z86.69 Personal history of other diseases of the nervous system and sense organs; Z79.899 Other long term (current) drug therapy; Z79.84 Long term (current) use of oral hypoglycemic drugs; Z82.49 Family history of ischemic heart disease and other diseases of the circulatory system; Z86.73 Personal history of transient ischemic attack (TIA), and cerebral infarction without residual deficits
CPT/HCPCS: 93005; 99285; 36415 ×2; 85025; 80048; 80053; 84484 ×2; 71045; 93010; G0378 ×2; A9270; S0119

== ENCOUNTER → 2019-10-06 | Outpatient (CLI) | payer MEDICARE, OTHER ==
[2019-10-06 09:40] LABS: ABSOLUTE BASOPHILS # (AUTO) 0.1 10^3/uL (0.0-0.2); ABSOLUTE EOSINOPHILS # (AUTO) 0.4 10^3/uL (0.0-0.6); ABSOLUTE LYMPHOCYTES (AUTO) 1.7 10^3/uL (0.5-4.7); ABSOLUTE MONOCYTES (AUTO) 0.5 10^3/uL (0.1-1.4); ABSOLUTE NEUT (AUTO) 3.3 10^3/uL (1.7-8.2); BASOPHILS % (AUTO) 0.9 % (0-2); EOSINOPHILS % (AUTO) 7.3 % (0-6); HEMATOCRIT 36.5 % (37.9-51.0); HEMOGLOBIN 11.9 g/dL (13.5-17.0); LYMPHOCYTES % (AUTO) 28.8 % (13-45); MEAN CORPUSCULAR HEMOGLOBIN 27.1 pg (27.0-33.4); MEAN CORPUSCULAR HGB CONC 32.7 g/dL (32.0-36.0); MEAN CORPUSCULAR VOLUME 83 fl (80-97); MONOCYTES % (AUTO) 8.9 % (3-13); PLATELET COUNT 220 10^3/uL (150-450); RED CELL DISTRIBUTION WIDTH 14.3 % (11.5-14.0); SEGMENTED NEUTROPHILS % (AUTO) 54.1 % (42-78); TOTAL CELLS COUNTED % (AUTO) 100 %; WHITE BLOOD COUNT 6.1 10^3/uL (4.0-10.5)
[2019-10-06 10:10] LABS: ALBUMIN 4.2 g/dL (3.5-5.0); ALKALINE PHOSPHATASE 50 U/L (38-126); ANION GAP 11 (5-19); ASPARTATE AMINO TRANSFERASE 18 U/L (17-59); BILIRUBIN,DIRECT 0.2 mg/dL (0.0-0.4); BILIRUBIN,TOTAL 0.3 mg/dL (0.2-1.3); BLOOD UREA NITROGEN 17 mg/dL (7-20); CALCIUM 9.4 mg/dL (8.4-10.2); CARBON DIOXIDE 29 mmol/L (22-30); CHLORIDE 104 mmol/L (98-107); CHOLESTEROL 166.75 mg/dL (0-200); GLUCOSE 86 mg/dL (75-110); POTASSIUM 4.1 mmol/L (3.6-5.0); TRIGLYCERIDES 200 mg/dL (<150)
[2019-10-06 10:20] LABS: DIRECT LDL 92 mg/dL (<100)
== END ==
LOC: OD 08:02
PROVIDERS: ATTEND Internal Medicine
DX: E78.5 Hyperlipidemia, unspecified (principal); G20 Parkinson's disease; R35.1 Nocturia; E11.9 Type 2 diabetes mellitus without complications
CPT/HCPCS: 36415; 80053; 80061; 83036; 84153; 84443; 85025

== ENCOUNTER → 2020-03-13 | Outpatient (CLI) | payer MEDICARE, OTHER ==
--- NOTE | 2020-03-13 10:47 | ER RDC ASSESSMENT REPORT ---
Intake - In the Last 14 days Have you traveled outside [place]?: No Have you been in close contact with someone CONFIRMED: Yes Worked in Healthcare?: No - Symptoms Subjective Fever([place] feverish): No Chills: No Muscule Aches: Yes Runny Nose: Yes Sore Throat: No Cough (New or worsening chronic cough): Yes --How many day(s)?: Has a history of asthma but has a cough since last week 5/6 Shortness of breath: Yes Nausea or Vomiting: No Headache: Yes Abdominal Pain: No Diarrhea(3 or more loose stools in last 24 hours): No - Do you have any of the following Chronic lung disease: Asthma or emphysema or COPD: Yes Chronic Lung Disease Comment: History of asthma Cystic Fibrosis: No Diabetes: Yes High Blood Pressure: No Cardiovascular Disease: Yes Cardiovascular Disease Comment: History of syncope and low blood pressure Chronic Kidney Disease: No Chronic Liver Disease: No Chronic blood disorder like Sickle Cell Disease: No Weak immune system due to disease or medication: No Neurologic condition that limits movement: Yes Neurological Condition Comment: History of Parkinson's Developmental delay - Moderate to Severe: No Recent (within past 2 weeks) or current : No Morbid Obesity (>100 pounds over ideal weight): No Obesity Comment: Height 5 feet 9 inches weight 180 pounds - Objective Temperature: 96.9 F Pulse Rate: 80 Respiratory Rate: 20 Blood Pressure: 143/86 O2 Sat by Pulse Oximetry: 94 Objective: Given above, testing performed: If Testing Performed: Test Specimen Type Sent to General - General Information source: Patient Notes: She is here at [facility] today for Covid testing/. Reports took neighbor to the hospital several days ago and that person has now been diagnosed with COVID. Patient contacted PCP yesterday. Does have chronic asthma and developed cough with muscle aches. Denies fever. - HPI Onset: Last week - Related Data Allergies/Adverse Reactions: feathers Allergy (Severe, Verified 03/23/17 07:57) Difficulty breathing shellfish derived Allergy (Severe, Verified 02/07/18 10:32) Anaphylaxis Benzodiazepines Adverse Reaction (Severe, Verified 03/23/17 07:57) SEVERE MIGRAINES midodrine Adverse Reaction (Severe, Verified 03/23/17 08:23) LOW HEART RATE Sulfa (Sulfonamide Antibiotics) Adverse Reaction (Severe, Verified 03/23/17 07:57) N/V/D ibuprofen [From Motrin] Adverse Reaction (Mild, Verified 03/23/17 07:57) AGITATION feathers Allergy (Severe, Uncoded 03/23/17 07:57) BREATHING DIFFICULTIES Past Medical History - General Information source: Patient - Social History Smoking Status: Never Smoker Family History: CAD - Past Medical History Cardiac Medical History: Reports: Hx Hypercholesterolemia, Hx Heart Murmur Denies: Hx Heart Attack, Hx Hypertension Pulmonary Medical History: Reports: Hx Asthma - LAST USED INHALER APPROX 6 MONTHS AGO, Hx Bronchitis Denies: Hx Tuberculosis Neurological Medical History: Reports: Hx Cerebrovascular Accident - NO RESIDUAL. Denies: Hx Seizures Endocrine Medical History: Reports: Hx Diabetes Mellitus Type 2 Renal/ Medical History: Denies: Hx Peritoneal Dialysis GI Medical History: Reports: Hx Gastroesophageal Reflux Disease. Denies: Hx Hepatitis, Hx Hiatal Hernia, Hx Ulcer Musculoskeletal Medical History: Reports Hx Arthritis - hips, back Psychiatric Medical History: Denies: Hx Depression Infectious Medical History: Denies: Hx Hepatitis Past Surgical History: Reports: Hx Cardiac Catheterization - Negative cardiac cath in about October 2010, Hx Herniorrhaphy - as a child, Hx Tonsillectomy. Denies: Hx Appendectomy, Hx Open Heart Surgery, Hx Pacemaker Physical Exam - General General appearance: Appears well, Alert In distress: None Notes: PHYSICAL EXAMINATION: GENERAL: Well-appearing and in no acute distress. HEAD: Atraumatic, normocephalic. EYES: sclera anicteric, conjunctiva are normal. ENT: nares patent. Moist mucous membranes. NECK: Normal range of motion, supple without lymphadenopathy LUNGS: CTAB and equal. No wheezes rales or rhonchi. resp even and unlabored. lung sounds clear. Dry cough noted with deep inhalation. HEART: Regular rate and rhythm without murmurs ABDOMEN: Soft, nontender, normal bowel sounds, no guarding. EXTREMITIES: No cyanosis. NEUROLOGICAL: Normal speech. PSYCH: Normal mood, normal affect. SKIN: Warm, Dry, normal turgor, no rashes or lesions noted Diagnostic Results Laboratory Results: Patient informed of negative rapid strep and negative rapid flu results. pending strep culture pending COVID testing results. Patient provided instructions regarding COVID to include: As a person under investigation for Covid 19, the [facility] of Health and Human Services, division of public health advises you to adhere to the following guidance until your test results are reported to you. If your test result is positive, you will receive additional information from your provider and your local health department at that time. Remain at home until you are cleared by the health provider or public health authorities. Keep a log of visitors to your home, notify any visitors to your home of your isolation status. If you plan to move to a new address or leave the county, notify the local health department in your County. Call your doctor or seek care if you have an urgent medical need. Before seeking medical care, call ahead to get instructions from the provider before a rriving at the medical office clinic or hospital. Notify them that you are being tested for the virus that causes Covid 19 so that arrangements can be made, as necessary, to prevent transmission to others in the healthcare setting. Next, notify the local health department in your county. If a medical emergency arises and you need to call 911, inform the first responders that you are being tested for the virus that causes Covid 19. Next, notify the local health department in your county. Patient Education/Counseling Counseling/Education: Patient presents with upper respiratory symptoms worrisome for possible Covid 19. Patient does not have emergency worring symptoms such as difficulty breathing, shortness of breath, chest pain, pressure, confusion or cyanosis. Patient appears suitable for discharge. Patient to follow up with PCP today Dr. Reed. TO ED for persistent or worsening symptoms. Patient's vital signs are stable and patient is nontoxic in appearance. Good return precautions have been discussed with patient, patient verbalized understanding and is agreeable with discharge plan of care at this time. RDC Discharge - Discharge Clinical Impression: COVID- 19 SCREENING Upper respiratory infection Qualifiers: URI type: unspecified URI Qualified Code(s): J06.9 - Acute upper respiratory infection, unspecified Condition: Stable Disposition: Home; Selfcare
[2020-03-13 10:49] VITALS: BP 143/86
[2020-03-13 11:57] LABS: A TYPE INFLUENZA AG NEGATIVE (NEGATIVE); B INFLUENZA AG NEGATIVE (NEGATIVE)
== END ==
LOC: RDC 10:06
PROVIDERS: ATTEND Nurse Practitioner Family
DX: Z20.820 Contact with and (suspected) exposure to varicella (principal); R50.9 Fever, unspecified; R06.02 Shortness of breath; R51 Headache; M79.10 Myalgia, unspecified site; J45.909 Unspecified asthma, uncomplicated; G20 Parkinson's disease; Z88.2 Allergy status to sulfonamides; Z88.6 Allergy status to analgesic agent; Z91.013 Allergy to seafood; Z91.048 Other nonmedicinal substance allergy status
CPT/HCPCS: 87070; 87880; 87804; U0003; 87635; 99211

== ENCOUNTER → 2020-08-06 | Outpatient (CLI) | payer MEDICARE, OTHER ==
--- NOTE | 2020-08-06 09:28 | RADIOLOGY REPORT (SQ) ---
EXAM DESCRIPTION: COOKIE SWALLOW IMAGES COMPLETED DATE/TIME: 08/06/2020 9:00 am REASON FOR STUDY: R13.10 DYSPHAGIA, UNSPECIFIED R13.10 DYSPHAGIA, UNSPECIFIED [facility] COMPARISON: None. TECHNIQUE: Videofluoroscopic swallowing examination was performed in conjunction with speech patholo gy. Videofluoroscopic imaging was obtained and reviewed and these are the findings: RADIATION DOSE: Fluoro time 2.4 minutes 1 images saved to PACS. LIMITATIONS: None FINDINGS: The patient was brought into the fluoro room and placed upright on a modified barium swall ow chair. The patient was then given multiple consistencies mixed with barium to swallow under live fluoroscopic video guidance. According to the Speech Pathologist there was no penetration or aspirat ion. Please refer to the speech pathology report for further details. IMPRESSION: NO EVIDENCE OF PENETRATION OR ASPIRATION. PLEASE SEE SPEECH PATHOLOGIST REPORT FOR OTHER FINDINGS AND RECOMMENDATIONS. COMMENT: None Quality ID [id number]: Final reports for procedures using fluoroscopy that document radiation exposure slick bret, or exposure time and number of fluorographic images (if radiation exposure indices are not avail able) TECHNICAL DOCUMENTATION: JOB ID: [id number] 2010 [employer]- All Rights Reserved Reading location - IP/workstation name: [email or web address]
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
== END ==
LOC: RAD 07:43
PROVIDERS: ATTEND Pediatrics
DX: R13.10 Dysphagia, unspecified (principal); K21.9 Gastro-esophageal reflux disease without esophagitis; G20 Parkinson's disease; E11.9 Type 2 diabetes mellitus without complications; J45.909 Unspecified asthma, uncomplicated; M13.80 Other specified arthritis, unspecified site
CPT/HCPCS: 74230

== ENCOUNTER 2020-09-09 10:15 | Observation (INO) | payer MEDICARE, OTHER ==
[2020-09-09 10:39] LABS: ABSOLUTE BASOPHILS # (AUTO) 0.1 10^3/uL (0.0-0.2); ABSOLUTE EOSINOPHILS # (AUTO) 0.4 10^3/uL (0.0-0.6); ABSOLUTE LYMPHOCYTES (AUTO) 1.7 10^3/uL (0.5-4.7); ABSOLUTE MONOCYTES (AUTO) 0.5 10^3/uL (0.1-1.4); ABSOLUTE NEUT (AUTO) 3.2 10^3/uL (1.7-8.2); BASOPHILS % (AUTO) 1.6 % (0-2); EOSINOPHILS % (AUTO) 6.7 % (0-6); HEMATOCRIT 33.2 % (37.9-51.0); LYMPHOCYTES % (AUTO) 28.9 % (13-45); MEAN CORPUSCULAR HGB CONC 33.2 g/dL (32.0-36.0); MEAN CORPUSCULAR VOLUME 78 fl (80-97); MONOCYTES % (AUTO) 8.8 % (3-13); PLATELET COUNT 210 10^3/uL (150-450); RED BLOOD COUNT 4.23 10^6/uL (4.35-5.55); TOTAL CELLS COUNTED % (AUTO) 100 %
[2020-09-09 10:55] LABS: ALBUMIN 4.2 g/dL (3.5-5.0); ALKALINE PHOSPHATASE 54 U/L (38-126); ANION GAP 12 (5-19); ASPARTATE AMINO TRANSFERASE 20 U/L (17-59); BILIRUBIN,DIRECT 0.2 mg/dL (0.0-0.4); BILIRUBIN,TOTAL 0.5 mg/dL (0.2-1.3); BLOOD UREA NITROGEN 16 mg/dL (7-20); CALCIUM 9.6 mg/dL (8.4-10.2); CARBON DIOXIDE 27 mmol/L (22-30); CHLORIDE 102 mmol/L (98-107); CREATINE KINASE 39 U/L (55-170); GLUCOSE 103 mg/dL (75-110); POTASSIUM 3.9 mmol/L (3.6-5.0); TOTAL PROTEIN 6.9 g/dL (6.3-8.2)
--- NOTE | 2020-09-09 11:03 | RADIOLOGY REPORT (SQ) ---
EXAM DESCRIPTION: CHEST SINGLE VIEW IMAGES COMPLETED DATE/TIME: 09/09/2020 9:39 am REASON FOR STUDY: chest pain. COMPARISON: Chest radiograph 10/30/2018 EXAM PARAMETERS: NUMBER OF VIEWS: One view. TECHNIQUE: Single frontal radiographic view of the chest acquired. RADIATION DOSE: NA LIMITATIONS: None. FINDINGS: LUNGS AND PLEURA: Lungs are hyperinflated. No opacities, masses or pneumothorax. No pleu ral effusion. MEDIASTINUM AND HILAR STRUCTURES: No masses. Contour normal. HEART AND VASCULAR STRUCTURES: Heart normal in size. Normal vasculature. BONES: No acute findings. HARDWARE: None in the chest. OTHER: No other significant finding. IMPRESSION: No acute cardiopulmonary disease. Hyperinflated lungs which can be seen with obstructiv e lung disease. TECHNICAL DOCUMENTATION: JOB ID: [id number] 2010 [employer]- All Rights Reserved Reading location - IP/workstation name: [email or web address]
[2020-09-09 11:07] LABS: CREATINE KINASE MB 0.43 ng/mL (<4.55)
[2020-09-09 11:11] LABS: TROPONIN I < 0.012 ng/mL
--- NOTE | 2020-09-09 14:47 | ER Document Report ---
ED Cardiac - General Chief Complaint: Chest Pain Stated Complaint: CHEST PAIN Time Seen by Provider: 09/09/20 10:30 Primary Care Provider: PAL ABDUL MD [Primary Care Provider] - Follow up as needed Mode of Arrival: Medic Information source: Patient TRAVEL OUTSIDE OF THE [place] IN LAST 30 DAYS: No - HPI Notes: Patient comes in complaining of chest pain. He states this pain started this morning on the left side. He states he is also felt "washed out". He states he tried to take a shower but still continued to have fatigue and chest pain take came to the hospital. He states his chest pain is currently 2/10 but was worse prior to arrival. Patient states he does take an aspirin today and did take 1 today. He also received nitroglycerin in route but states this did not do anything to help with the pain. Patient's pain is been relatively constant. It does radiate into his left jaw. It has been moderate to mild in intensity. Nothing is appeared to make it better or worse. He has had no significant nausea or shortness of breath. No recent cough cold or congestion. He denies any history of coronary artery disease but states he has seen support analyst in the past. - Related Data Allergies/Adverse Reactions: feathers Allergy (Severe, Verified 03/23/17 07:57) Difficulty breathing shellfish derived Allergy (Severe, Verified 02/07/18 10:32) Anaphylaxis Benzodiazepines Adverse Reaction (Severe, Verified 03/23/17 07:57) SEVERE MIGRAINES midodrine Adverse Reaction (Severe, Verified 03/23/17 08:23) LOW HEART RATE Sulfa (Sulfonamide Antibiotics) Adverse Reaction (Severe, Verified 03/23/17 07:57) N/V/D ibuprofen [From Motrin] Adverse Reaction (Mild, Verified 03/23/17 07:57) AGITATION feathers Allergy (Severe, Uncoded 03/23/17 07:57) BREATHING DIFFICULTIES Home Medications: Metformin, lipitor, valium, motrin, tramadol, eggs, gabapentin, Viactiv, Albuterol, zytrec Past Medical History - General Information source: Patient - Social History Smoking Status: Former Smoker Frequency of alcohol use: None Drug Abuse: None Family History: CAD - Past Medical History Cardiac Medical History: Reports: Hx Hypercholesterolemia, Hx Heart Murmur Denies: Hx Heart Attack, Hx Hypertension Pulmonary Medical History: Reports: Hx Asthma - LAST USED INHALER APPROX 6 MONTHS AGO, Hx Bronchitis Denies: Hx Tuberculosis Neurological Medical History: Reports: Hx Cerebrovascular Accident - NO RESIDUAL. Denies: Hx Seizures Endocrine Medical History: Reports: Hx Diabetes Mellitus Type 2 Renal/ Medical History: Denies: Hx Peritoneal Dialysis GI Medical History: Reports: Hx Gastroesophageal Reflux Disease. Denies: Hx Hepatitis, Hx Hiatal Hernia, Hx Ulcer Musculoskeletal Medical History: Reports Hx Arthritis - hips, back Psychiatric Medical History: Denies: Hx Depression Infectious Medical History: Denies: Hx Hepatitis Past Surgical History: Reports: Hx Cardiac Catheterization - Negative cardiac cath in about October 2010, Hx Herniorrhaphy - as a child, Hx Tonsillectomy. Denies: Hx Appendectomy, Hx Open Heart Surgery, Hx Pacemaker - Immunizations Hx Diphtheria, Pertussis, Tetanus Vaccination: Yes Hx Pneumococcal Vaccination: 11/01/12 Review of Systems - Review of Systems Constitutional: denies: Chills, Fever Cardiovascular: Chest pain. denies: Palpitations Respiratory: denies: Cough, Short of breath -: Yes All other systems reviewed and negative Physical Exam - Vital signs Vitals: Resp 18 09/09/20 10:16 Interpretation: Normal - General General appearance: Appears well, Alert - HEENT Head: Normocephalic, Atraumatic Eyes: Normal Pupils: PERRL - Respiratory Respiratory status: No respiratory distress Chest status: Nontender Breath sounds: Normal Chest palpation: Normal - Cardiovascular Rhythm: Regular Heart sounds: Normal auscultation Murmur: No - Abdominal Inspection: Normal Distension: No distension Bowel sounds: Normal Tenderness: Nontender Organomegaly: No organomegaly - Back Back: Normal, Nontender - Extremities General upper extremity: Normal inspection, Nontender, Normal color, Normal ROM, Normal temperature General lower extremity: Normal inspection, Nontender, Normal color, Normal ROM, Normal temperature, Normal weight bearing. No: Jada's sign - Neurological Neuro grossly intact: Yes Cognition: Normal Orientation: AAOx4 [place] Coma Scale Eye Opening: Spontaneous [place] Coma Scale Verbal: Oriented [place] Coma Scale Motor: Obeys Commands [place] Coma Scale Total: 15 Speech: Normal Motor strength normal: LUE, RUE, LLE, RLE Sensory: Normal - Psychological Associated symptoms: Normal affect, Normal mood - Skin Skin Temperature: Warm Skin Moisture: Dry Skin Color: Normal Course - Re-evaluation Re-evalutation: 09/09/20 14:46 Patient presents with chest pain. His heart score is a 5. I have discussed the patient with Dr. Wharton the car loader. At this time due to patient's heart score it seems most prudent that the patient be admitted for further evaluation and treatment of the chest pain to ascertain whether or not this is cardiac in origin. - Vital Signs Vital signs: Temp Pulse Resp BP Pulse Ox 14 129/75 H 96 09/09/20 14:01 09/09/20 14:00 09/09/20 14:01 - Laboratory Result Diagrams: 09/09/20 10:18 09/09/20 10:18 Laboratory results interpreted by me: 09/09/20 09/09/20 10:18 10:18 RBC 4.23 L Hgb 11.0 L Hct 33.2 L MCV 78 L MCH 26.0 L RDW 16.0 H Eos % (Auto) 6.7 H Creatine Kinase 39 L - Diagnostic Test Radiology reviewed: Image reviewed, Reports reviewed - EKG Interpretation by Pa EKG shows normal: Sinus rhythm Rate: Normal - 62 [place]/QRS: RBBB, LAHB/LAFB Discharge - Discharge Clinical Impression: Chest pain Qualifiers: Chest pain type: unspecified Qualified Code(s): R07.9 - Chest pain, unspecified Condition: Serious Disposition: ADMITTED INPATIENT Admitting Provider: Sue (Hospitalist) Unit Admitted: Telemetry Referrals: PAL ABDUL MD [Primary Care Provider] - Follow up as needed
[2020-09-09] MEDS ORDERED: ONDANSETRON HCL INJ/PF 4 MG/2 ML SDV IV PRN (15:37)
[2020-09-09] MEDS ORDERED: MAG HYDROX/AL HYDROX/SIMETH SUSP 30 ML UDCUP PO PRN (15:37)
[2020-09-09] MEDS ORDERED: ACETAMINOPHEN 325 MG TABLET PO PRN (15:37)
[2020-09-09] MEDS ORDERED: DEXTROSE 40% GEL 15 GM TUBE PO PRN ×2 (15:45)
[2020-09-09] MEDS ORDERED: GLUCAGON,HUMAN RECOMB 1 MG INJ SUBCUT PRN (15:45)
[2020-09-09] MEDS ORDERED: DEXTROSE 50%-WATER 25 GM/50 ML DISP.SYRIN IV PRN ×2 (15:45)
[2020-09-09] MEDS ORDERED: TRAMADOL HCL 50 MG TABLET PO PRN (15:46)
[2020-09-09] MEDS ORDERED: FLUTICASONE NASAL SPRAY 50 MCG/SPRY 120 SPRAY/16 GM NASL PRN (15:46)
[2020-09-09] MEDS ORDERED: ALBUTEROL SULFATE 0.083% NEB 2.5 MG/3 ML AMPUL NEB PRN (15:51)
--- NOTE | 2020-09-09 16:14 | PDOC H&P ---
History of Present Illness Admission Date/PCP: 09/09/20 15:37 PAL ABDUL MD Patient complains of: Chest pain, syncope History of Present Illness: DEANDRE NASH is a 75 year old male with history of Parkinson's disease, autonomic dysfunction with neurocardiogenic syncope and orthostatic hypotension, diabetes mellitus type 2, hyperlipidemia, who presents to the hospital after episode of chest pain and syncope. His chest pain began this morning while he was watching TV. He was described as left-sided aching pain moderate in severity. No clear relationship with exertion or rest. Atraumatic no erythema initially but it persisted. No clear aggravating or alleviating factors. No prior episodes of this. He got up and use the bathroom but no improvement. He started to feel lightheaded when the pain started to move up to the left side of his neck. He also started to have some nausea but no vomiting. Subsequently experienced a syncopal episode while in the chair which lasted less than a minute. Seems his witnessed it. On awaking he was back to his usual self. His syncopal episode occurred around 830 to 9 AM. Notably he has history of neurocardiogenic syncope and has had episodes of the syncopal before but the chest pain is new. He also sees cattle inspector Dr. Gabriel Gallagher at [facility] who implanted a loop recorder. Patient notes that during his chest pain episode and prior to his syncope, his blood pressure was 160s/90s and on arrival of EMS his blood pressure was in the 200/102. In the ER he BP have been adequa te. Chest pain is also almost resolved and just 2/10 at this point. He denies ever having a left heart cath but had a stress test over 10 years ago which was normal. Past Medical History Cardiac Medical History: Reports: Hyperlipidema, Heart Murmur Denies: Myocardial Infarction, Hypertension Pulmonary Medical History: Reports: Asthma - LAST USED INHALER APPROX 6 MONTHS AGO, Bronchitis Denies: Tuberculosis Neurological Medical History: Denies: Seizures Endocrine Medical History: Reports: Diabetes Mellitus Type 2 GI Medical History: Reports: Gastroesophageal Reflux Disease Denies: Hepatitis, Hiatal Hernia Musculoskeltal Medical History: Reports: Arthritis - hips, back Psychiatric Medical History: Denies: Depression Hematology: Reports: Anemia - HX OF Denies: Sickle Cell Disease Past Surgical History Past Surgical History: Reports: Cardiac Catheterization - Negative cardiac cath in about October 2010, Herniorrhaphy - as a child, Tonsillectomy Denies: Appendectomy, Pacemaker Social History Smoking Status: Former Smoker Frequency of Alcohol Use: None Hx Recreational Drug Use: No Drugs: None Hx Prescription Drug Abuse: No - Advance Directive Resuscitation Status: Full Code Family History Family History: CAD, Hypertension Parental Family History Reviewed: Yes Children Family History Reviewed: NA Sibling(s) Family History Reviewed.: Yes Medication/Allergy Home Medications: Atorvastatin Calcium [Lipitor 10 mg Tablet] 10 mg PO QHS 10/30/18 Cetirizine HCl [Zyrtec 10 mg Tablet] 10 mg PO QPM 10/30/18 Esomeprazole Magnesium 40 mg PO DAILY 10/30/18 Fludrocortisone Acetate [Florinef 0.1 mg Tablet] 0.1 mg PO Q12 10/30/18 Fluticasone Propionate [Flonase Nasal [place] 50 Mcg/[place] 16 gm] 1 spray NASL DAILYP PRN 10/30/18 Gabapentin [Neurontin 100 mg Capsule] 200 mg PO Q12 10/30/18 Tramadol HCl [Ultram 50 mg Tablet] 50 mg PO ASDIR PRN 10/30/18 Ascorbic Acid [Vitamin C 500 mg Tablet] 500 mg PO QPM 09/09/20 Calcium Carbonate [Os-[place]am 500 mg Tablet (Oyster-Shell)] 500 mg PO DAILY 09/09/20 Cholecalciferol (Vitamin D3) [Vitamin D3 1000 Unit Tablet] 2,000 unit PO DAILY 09/09/20 Cyanocobalamin (Vitamin B-12) [Vitamin B-12 1000 Mcg Tablet] 3,000 mcg PO DAILY 09/09/20 Metformin HCl [Metformin HCl ER] 500 mg PO TID 09/09/20 Allergies/Adverse Reactions: feathers Allergy (Severe, Verified 03/23/17 07:57) Difficulty breathing shellfish derived Allergy (Severe, Verified 02/07/18 10:32) Anaphylaxis Benzodiazepines Adverse Reaction (Severe, Verified 03/23/17 07:57) SEVERE MIGRAINES midodrine Adverse Reaction (Severe, Verified 03/23/17 08:23) LOW HEART RATE Sulfa (Sulfonamide Antibiotics) Adverse Reaction (Severe, Verified 03/23/17 07:57) N/V/D ibuprofen [From Motrin] Adverse Reaction (Mild, Verified 03/23/17 07:57) AGITATION feathers Allergy (Severe, Uncoded 03/23/17 07:57) BREATHING DIFFICULTIES Review of Systems Constitutional: ABSENT: fatigue, fever(s), headache(s) Eyes: ABSENT: visual disturbances Ears: ABSENT: hearing changes Nose, Mouth, and Throat: ABSENT: headache(s) Cardiovascular: PRESENT: chest pain. ABSENT: dyspnea on exertion Respiratory: ABSENT: cough Gastrointestinal: PRESENT: nausea. ABSENT: abdominal pain Genitourinary: ABSENT: dysuria Musculoskeletal: ABSENT: muscle weakness Integumentary: PRESENT: diaphoresis Neurological: PRESENT: dizziness Endocrine: ABSENT: polyuria Allergic/Immunologic: PRESENT: seasonal rhinorrhea Physical Exam Vital Signs: Temp Pulse Resp BP Pulse Ox 14 129/75 H 96 09/09/20 14:01 09/09/20 14:00 09/09/20 14:01 Intake & Output 09/08/20 09/09/20 09/10/20 06:59 06:59 06:59 Weight 72 kg General appearance: PRESENT: no acute distress, cooperative Mouth exam: PRESENT: neck supple Neck exam: ABSENT: JVD Respiratory exam: PRESENT: clear to auscultation tremaine, symmetrical, unlabored. ABSENT: accessory muscle use, crackles, tachypnea, wheezes Cardiovascular exam: PRESENT: RRR, +S1, +S2. ABSENT: systolic murmur, tachycardia GI/Abdominal exam: PRESENT: soft. ABSENT: rebound, rigid, tenderness Extremities exam: ABSENT: pedal edema Neurological exam: PRESENT: alert, awake, oriented to person, oriented to place, oriented to time, oriented to situation Results Laboratory Results: 09/09/20 10:18 09/09/20 10:18 09/09/20 09/09/20 10:18 10:18 WBC 6.0 RBC 4.23 L Hgb 11.0 L Hct 33.2 L MCV 78 L MCH 26.0 L MCHC 33.2 RDW 16.0 H Plt Count 210 Seg Neutrophils % 54.0 Sodium 141.2 Potassium 3.9 Chloride 102 Carbon Dioxide 27 Anion Gap 12 BUN 16 Creatinine 0.99 Est GFR ( Amer) > 60 Glucose 103 Calcium 9.6 Total Bilirubin 0.5 AST 20 Alkaline Phosphatase 54 Total Protein 6.9 Albumin 4.2 09/09/20 09/09/20 09/09/20 10:18 10:18 13:27 Creatine Kinase 39 L CK-MB (CK-2) 0.43 Troponin I < 0.012 < 0.012 Impressions: Chest X-Ray 09/09/20 10:16 IMPRESSION: No acute cardiopulmonary disease. Hyperinflated lungs which can be seen with obstructive lung disease. Assessment and Plan - Diagnosis (1) Chest pain Qualifiers: Chest pain type: unspecified Qualified Code(s): R07.9 - Chest pain, unspec ified Is this a current diagnosis for this admission?: Yes Plan: EKG only shows nonspecific T wave inversions. These findings are chronic. Chest x-ray showing no acute disease Currently troponins have been negative. Will trend. Lipid panel and A1c in the morning He may benefit from a stress test outpatient or inpatient. Discussed case with Dr. Rohan Wharton who will be seeing patient tomorrow morning. Will keep npo past midnight just in case stress is pursued. (2) Syncope Qualifiers: Syncope type: vasovagal syncope Qualified Code(s): R55 - Syncope and collapse Is this a current diagnosis for this admission?: Yes Plan: Has history of neurocardiogenic syncope so this is not quite new for him. Seems to have autonomic dysfunction associated with his Parkinson's disease possibly multisystem atrophy. Dr. Wharton will see if he can interrogate his loop recorder. Keep on telemetry Outpatient follow-up with Dr. Gabriel Gallagher [psych assistant at [facility]] (3) DM type 2 (diabetes mellitus, type 2) Is this a current diagnosis for this admission?: Yes Plan: Hold Metformin while inpatient. Accu-Cheks, SSI, diabetic diet (4) Asthma Qualifiers: Asthma severity: unspecified severity Asthma persistence: unspecified Asthma complication type: uncomplicated Qualified Code(s): J45.909 - Unspecified asthma, uncomplicated Is this a current diagnosis for this admission?: Yes Plan: Stable at this point. Not in exacerbation. Albuterol as needed. (5) Parkinson's disease Is this a current diagnosis for this admission?: Yes Plan: Continue Florinef for his orthostatic hypotension. - Time Time Spent with patient: 35 or more minutes Anticipated Discharge Disposition: Home, Self Care Anticipated Discharge Timeframe: within 24 hours
[2020-09-09] MEDS: INSULIN LISPRO 100 UNIT/ML 3 ML VIAL SUBCUT SCH ×2 (16:44→21:31)
[2020-09-09] MEDS ORDERED: ASCORBIC ACID 500 MG TABLET PO SCH (18:00)
[2020-09-09] MEDS ORDERED: CETIRIZINE 10 MG TABLET PO SCH (18:00)
[2020-09-09] MEDS: GABAPENTIN 100 MG CAPSULE PO SCH (21:28)
[2020-09-09] MEDS: FLUDROCORTISONE ACETATE 0.1 MG TABLET PO SCH (21:28)
[2020-09-09] MEDS ORDERED: ATORVASTATIN CALCIUM 10 MG TABLET PO SCH (22:00)
--- NOTE | 2020-09-09 22:40 | EKG REPORT ---
SEVERITY:- ABNORMAL ECG - SINUS RHYTHM RBBB AND LAFB LATERAL INFARCT, OLD : Confirmed by: Chu Munoz 09-Sep-2020 22:39:32
[2020-09-10] MEDS ORDERED: PANTOPRAZOLE SODIUM 40 MG TABLET.DR PO SCH (06:00)
[2020-09-10 07:21] LABS: CHOLESTEROL 143.43 mg/dL (0-200); TRIGLYCERIDES 221 mg/dL (<150)
[2020-09-10 07:32] LABS: DIRECT LDL 73 mg/dL (<100)
[2020-09-10] MEDS: INSULIN LISPRO 100 UNIT/ML 3 ML VIAL SUBCUT SCH ×2 (07:32→12:10)
[2020-09-10 07:35] LABS: VLDL CHOLESTEROL 44.2 mg/dL (10-31)
[2020-09-10] MEDS ORDERED: CYANOCOBALAMIN (VITAMIN B-12) 1,000 MCG TABLET PO SCH (10:00)
[2020-09-10] MEDS ORDERED: ENOXAPARIN SODIUM INJ 40 MG/0.4 ML DISP.SYRIN SUBCUT SCH (10:00)
[2020-09-10] MEDS ORDERED: CALCIUM CARBONATE 600 MG TABLET PO SCH (10:00)
[2020-09-10] MEDS ORDERED: CHOLECALCIFEROL (D3) 1,000 UNIT (25 MCG) TABLET PO SCH (10:00)
[2020-09-10] MEDS: GABAPENTIN 100 MG CAPSULE PO SCH (11:12)
[2020-09-10] MEDS: FLUDROCORTISONE ACETATE 0.1 MG TABLET PO SCH (11:13)
[2020-09-10 12:15] VITALS: BP 134/67
--- NOTE | 2020-09-10 13:00 | PDOC CONSULTATION ---
Consultation Consult Date: 09/10/20 Attending physician:: CUCO MENSAH Provider Consulted: ALYCE ESPINOZA Consult reason:: Chest pain History of Present Illness Admission Date/PCP: 09/09/20 15:37 PAL ABDUL MD Patient complains of: Chest pain History of Present Illness: DEANDRE NASH is a 75 year old male 75-year-old male with the following active problems 1. Parkinson's disease 2. Autonomic dysfunction 3. Diabetes mellitus 4. Dyslipidemia Patient presented to hospital with episodes of chest pain when he was resting and watching television. He is known to have autonomic dysfunction and has had syncope in the past. This is being managed. He did have a syncopal episode with the ongoing episodes of chest pain. He was found to be hypotensive after the episode of syncope. At the time of my evaluation he is chest pain-free and is not dizzy. Most recent stress test was over 10 years ago and this was normal Presently does not report any symptoms whatsoever. Overnight monitoring was unremarkable and his cardiac biomarkers are negative. Past Medical History Cardiac Medical History: Reports: Hyperlipidema, Heart Murmur Denies: Myocardial Infarction, Hypertension Pulmonary Medical History: Reports: Asthma, Bronchitis Denies: Tuberculosis Neurological Medical History: Denies: Seizures Endocrine Medical History: Reports: Diabetes Mellitus Type 2 GI Medical History: Reports: Gastroesophageal Reflux Disease Denies: Hepatitis, Hiatal Hernia Musculoskeltal Medical History: Reports: Arthritis Psychiatric Medical History: Denies: Depression Hematology: Reports: Anemia Denies: Sickle Cell Disease Past Surgical History Past Surgical History: Reports: Cardiac Catheterization - Negative cardiac cath in about October 2010, Herniorrhaphy - as a child, Tonsillectomy Denies: Appendectomy, Pacemaker Social History Smoking Status: Former Smoker Frequency of Alcohol Use: None Hx Recreational Drug Use: No Drugs: None Hx Prescription Drug Abuse: No - Advance Directive Resuscitation Status: Full Code Family History Family History: CAD, Hypertension Parental Family History Reviewed: Yes - No familial illnesses Children Family History Reviewed: NA Sibling(s) Family History Reviewed.: NA Medication/Allergy Home Medications: Atorvastatin Calcium [Lipitor 10 mg Tablet] 10 mg PO QHS 10/30/18 Cetirizine HCl [Zyrtec 10 mg Tablet] 10 mg PO QPM 10/30/18 Esomeprazole Magnesium 40 mg PO DAILY 10/30/18 Fludrocortisone Acetate [Florinef 0.1 mg Tablet] 0.1 mg PO Q12 10/30/18 Fluticasone Propionate [Flonase Nasal [place] 50 Mcg/[place] 16 gm] 1 spray NASL DAILYP PRN 10/30/18 Gabapentin [Neurontin 100 mg Capsule] 200 mg PO Q12 10/30/18 Tramadol HCl [Ultram 50 mg Tablet] 50 mg PO ASDIR PRN 10/30/18 Ascorbic Acid [Vitamin C 500 mg Tablet] 500 mg PO QPM 09/09/20 Calcium Carbonate [[place] 500 mg Tablet (Oyster-Shell)] 500 mg PO DAILY 09/09/20 Cholecalciferol (Vitamin D3) [Vitamin D3 1000 Unit Tablet] 2,000 unit PO DAILY 09/09/20 Cyanocobalamin (Vitamin B-12) [Vitamin B-12 1000 mcg Tablet] 3,000 mcg PO DAILY 09/09/20 Metformin HCl [Metformin HCl ER] 500 mg PO TID 09/09/20 Allergies/Adverse Reactions: feathers Allergy (Severe, Verified 03/23/17 07:57) Difficulty breathing shellfish derived Allergy (Severe, Verified 02/07/18 10:32) Anaphylaxis Benzodiazepines Adverse Reaction (Severe, Verified 03/23/17 07:57) SEVERE MIGRAINES midodrine Adverse Reaction (Severe, Verified 03/23/17 08:23) LOW HEART RATE Sulfa (Sulfonamide Antibiotics) Adverse Reaction (Severe, Verified 03/23/17 07:57) N/V/D ibuprofen [From Motrin] Adverse Reaction (Mild, Verified 03/23/17 07:57) AGITATION feathers Allergy (Severe, Uncoded 03/23/17 07:57) BREATHING DIFFICULTIES Review of Systems Breasts: ABSENT: as per HPI, other Cardiovascular: PRESENT: chest pain Respiratory: ABSENT: as per HPI, cough, dyspnea, hemoptysis, sputum, other Integumentary: ABSENT: as per HPI, diaphoresis, erythema, lesions, pruritus, rash, wounds, other Neurological: PRESENT: abnormal gait, syncope Physical Exam Vital Signs: Temp Pulse Resp BP Pulse Ox 98.5 F 54 L 17 134/67 H 97 09/10/20 12:17 09/10/20 12:17 09/10/20 12:17 09/10/20 12:17 09/10/20 12:17 Intake & Output 09/09/20 09/10/20 09/11/20 06:59 06:59 06:59 Intake Total 778 986 Balance 778 986 Weight 76.6 kg General appearance: PRESENT: no acute distress, cooperative, well-developed, well-nourished Head exam: PRESENT: atraumatic, normocephalic Eye exam: PRESENT: conjunctiva pink, EOMI Mouth exam: PRESENT: moist Respiratory exam: PRESENT: symmetrical Cardiovascular exam: PRESENT: RRR, +S1, +S2 Pulses: PRESENT: normal radial pulses GI/Abdominal exam: PRESENT: soft Rectal exam: PRESENT: deferred Musculoskeletal exam: PRESENT: normal inspection Neurological exam: PRESENT: alert, awake, oriented to person, oriented to place, oriented to time, oriented to situation Psychiatric exam: PRESENT: appropriate affect Skin exam: PRESENT: dry, intact, normal color Results Laboratory Results: 09/09/20 10:18 09/09/20 10:18 09/10/20 05:42 Triglycerides 221 H Cholesterol 143.43 LDL Cholesterol Direct 73 VLDL Cholesterol 44.2 H HDL Cholesterol 35 L 09/09/20 09/09/20 09/09/20 10:18 10:18 13:27 Creatine Kinase 39 L CK-MB (CK-2) 0.43 Troponin I < 0.012 < 0.012 09/09/20 19:55 Creatine Kinase CK-MB (CK-2) Troponin I < 0.012 EKG Comments: Chest pain chest x-ray 09/09/2020 Hyperinflated lungs. No acute cardiopulmonary disease Twelve-lead EKG 09/09/2020 10:22 AM Sinus rhythm, 62 bpm, right bundle branch block and left anterior fascicular block. QTC is 468 ms Cardiac troponin less than 0.12x3 Impressions: Chest X-Ray 09/09/20 10:16 IMPRESSION: No acute cardiopulmonary disease. Hyperinflated lungs which can be seen with obstructive lung disease. Assessment & Plan - Diagnosis (1) Chest pain Qualifiers: Chest pain type: unspecified Qualified Code(s): R07.9 - Chest pain, unspecified Is this a current diagnosis for this admission?: Yes Plan: Patient episode of chest pain is resolved. He does have risk factors. However cardiac biomarkers are negative at this time Would recommend outpatient stress testing/ischemia evaluation. (2) Syncope Qualifiers: Syncope type: vasovagal syncope Qualified Code(s): R55 - Syncope and c ollapse Is this a current diagnosis for this admission?: Yes Plan: Patient known to have autonomic dysfunction EKG with conduction disease with right bundle branch block and left anterior fascicular block Known Parkinson's disease with labile hypertension as well as probable hypotension contributing to the symptoms. In the absence of convincing evidence there is no urgent indication to pursue cardiac pacing. 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 Would recommend continued follow-up (3) Parkinson's disease Is this a current diagnosis for this admission?: Yes Plan: Appears to be stable. Continue therapy.
--- NOTE | 2020-09-10 17:05 | PDOC DISCHARGE SUMMARY ---
Impression - Admit/DC Date/PCP Admission Date/Primary Care Provider: 09/09/20 15:37 PAL ABDUL MD Discharge Date: 09/10/20 - Discharge Diagnosis (1) Chest pain Is this a current diagnosis for this admission?: Yes (2) DM type 2 (diabetes mellitus, type 2) Is this a current diagnosis for this admission?: Yes (3) Parkinson's disease Is this a current diagnosis for this admission?: Yes (4) Syncope Is this a current diagnosis for this admission?: Yes - Additional Information Resuscitation Status: Full Code Discharge Diet: Cardiac, Diabetic Discharge Activity: Activity As Tolerated, No Driving, Supervised Activity, No tub bath Referrals: ALYCE ESPINOZA MD [ACTIVE STAFF] - (DOCTOR'S OFFICE WILL CONTACT THE PATIENT WITH THE FOLLOW UP APPT.) PAL ABDUL MD [Primary Care Provider] - Follow up as needed (DOCTORS OFFICE WILL CONTACT THE PATIENT WITH FOLLOW UP APPT.) Home Medications: Atorvastatin Calcium [Lipitor 10 mg Tablet] 10 mg PO QHS 10/30/18 Cetirizine HCl [Zyrtec 10 mg Tablet] 10 mg PO QPM 10/30/18 Esomeprazole Magnesium 40 mg PO DAILY 10/30/18 Fludrocortisone Acetate [Florinef 0.1 mg Tablet] 0.1 mg PO Q12 10/30/18 Fluticasone Propionate [Flonase Nasal [place] 50 Mcg/[place] 16 gm] 1 spray NASL DAILYP PRN 10/30/18 Gabapentin [Neurontin 100 mg Capsule] 200 mg PO Q12 10/30/18 Tramadol HCl [Ultram 50 mg Tablet] 50 mg PO ASDIR PRN 10/30/18 Ascorbic Acid [Vitamin C 500 mg Tablet] 500 mg PO QPM 09/09/20 Calcium Carbonate [Os-[place]am 500 mg Tablet (Oyster-Shell)] 500 mg PO DAILY 09/09/20 Cholecalciferol (Vitamin D3) [Vitamin D3 1000 Unit Tablet] 2,000 unit PO DAILY 09/09/20 Cyanocobalamin (Vitamin B-12) [Vitamin B-12 1000 mcg Tablet] 3,000 mcg PO DAILY 09/09/20 Metformin HCl [Metformin HCl ER] 500 mg PO TID 09/09/20 History of Present Illiness History of Present Illness: DEANDRE NASH is a 75 year old male with history of Parkinson's disease, autonomic dysfunction with neurocardiogenic syncope and orthostatic hypotension, diabetes mellitus type 2, hyperlipidemia, who presents to the hospital after episode of chest pain and syncope. His chest pain began this morning while he was watching TV. He was described as left-sided aching pain moderate in severity. No clear relationship with exertion or rest. Atraumatic no erythema initially but it persisted. No clear aggravating or alleviating factors. No prior episodes of this. He got up and use the bathroom but no improvement. He started to feel lightheaded when the pain started to move up to the left side of his neck. He also started to have some nausea but no vomiting. Subsequently experienced a syncopal episode while in the chair which lasted less than a minute. Seems his witnessed it. On awaking he was back to his usual self. His syncopal episode occurred around 830 to 9 AM. Notably he has history of neurocardiogenic syncope and has had episodes of the syncopal before but the chest pain is new. He also sees coding support specialist Dr. Gabriel Gallagher at [facility] who implanted a loop recorder. Patient notes that during his chest pain episode and prior to his syncope, his blood pressure was 160s/90s and on arrival of EMS his blood pressure was in the 200/102. In the ER he BP have been adequate. Chest pain is also almost resolved and just 2/10 at this point. He denies ever having a left heart cath but had a stress test over 10 years ago which was normal. Hospital Course Hospital Course: He did not have any more syncopal episodes while here, and apparently this is a chronic and ongoing issue for him. His troponins all remained negative and he had no EKG changes. He was not having any more discomfort. He was seen in co nsultation by cardiology who recommended outpatient stress test. At this time no further cardiac investigation was determined to be necessary. He has follow- up arranged with his public housing manager. He is going to see Dr. Espinoza in his office within the next week to do a stress test. His labs and examination were reassuring and he was discharged in stable condition. I have advised the patient not to drive until cleared to do so by his public housing manager. Physical Exam Vital Signs: Temp Pulse Resp BP Pulse Ox 98.5 F 54 L 17 134/67 H 97 09/10/20 12:17 09/10/20 12:17 09/10/20 12:17 09/10/20 12:17 09/10/20 12:17 Intake & Output 09/09/20 09/10/20 09/11/20 06:59 06:59 06:59 Intake Total 778 986 Balance 778 986 Weight 76.6 kg General appearance: PRESENT: no acute distress, cooperative, disheveled Respiratory exam: PRESENT: clear to auscultation tremaine, symmetrical, unlabored. ABSENT: accessory muscle use, chest wall tenderness, crackles, prolonged expiratory phas, rhonchi, tachypnea, wheezes Cardiovascular exam: PRESENT: RRR, +S1, +S2 Pulses: PRESENT: normal carotid pulses Vascular exam: PRESENT: normal capillary refill GI/Abdominal exam: PRESENT: normal bowel sounds, soft. ABSENT: distended, guarding, rebound, tenderness Extremities exam: ABSENT: clubbing, pedal edema Musculoskeletal exam: PRESENT: normal inspection. ABSENT: deformity Neurological exam: PRESENT: alert, awake, oriented to person, oriented to place, oriented to situation, CN II-XII grossly intact Psychiatric exam: PRESENT: appropriate affect, normal mood Skin exam: PRESENT: dry, warm Results Laboratory Results: WBC 6.0 10^3/uL (4.0-10.5) 09/09/20 10:18 RBC 4.23 10^6/uL (4.35-5.55) L 09/09/20 10:18 Hgb 11.0 g/dL (13.5-17.0) L 09/09/20 10:18 Hct 33.2 % (37.9-51.0) L 09/09/20 10:18 MCV 78 fl (80-97) L 09/09/20 10:18 MCH 26.0 pg (27.0-33.4) L 09/09/20 10:18 MCHC 33.2 g/dL (32.0-36.0) 09/09/20 10:18 RDW 16.0 % (11.5-14.0) H 09/09/20 10:18 Plt Count 210 10^3/uL (150-450) 09/09/20 10:18 Lymph % (Auto) 28.9 % (13-45) 09/09/20 10:18 [place] % (Auto) 8.8 % (3-13) 09/09/20 10:18 Eos % (Auto) 6.7 % (0-6) H 09/09/20 10:18 Baso % (Auto) 1.6 % (0-2) 09/09/20 10:18 Absolute Neuts (auto) 3.2 10^3/uL (1.7-8.2) 09/09/20 10:18 Absolute Lymphs (auto) 1.7 10^3/uL (0.5-4.7) 09/09/20 10:18 Absolute Monos (auto) 0.5 10^3/uL (0.1-1.4) 09/09/20 10:18 Absolute Eos (auto) 0.4 10^3/uL (0.0-0.6) 09/09/20 10:18 Absolute Basos (auto) 0.1 10^3/uL (0.0-0.2) 09/09/20 10:18 Seg Neutrophils % 54.0 % (42-78) 09/09/20 10:18 Sodium 141.2 mmol/L (137-145) 09/09/20 10:18 Potassium 3.9 mmol/L (3.6-5.0) 09/09/20 10:18 Chloride 102 mmol/L (98-107) 09/09/20 10:18 Carbon Dioxide 27 mmol/L (22-30) 09/09/20 10:18 Anion Gap 12 (5-19) 09/09/20 10:18 BUN 16 mg/dL (7-20) 09/09/20 10:18 Creatinine 0.99 mg/dL (0.52-1.25) 09/09/20 10:18 Est GFR ( Amer) > 60 (>60) 09/09/20 10:18 Est GFR (MDRD) Non-Af > 60 (>60) 09/09/20 10:18 Glucose 103 mg/dL (75-110) 09/09/20 10:18 POC Glucose 159 mg/dL (70-110) H 09/10/20 11:58 Hemoglobin A1c % 5.3 % (4.7-6.0) 09/10/20 05:42 Calcium 9.6 mg/dL (8.4-10.2) 09/09/20 10:18 Total Bilirubin 0.5 mg/dL (0.2-1.3) 09/09/20 10:18 Direct Bilirubin 0.2 mg/dL (0.0-0.4) 09/09/20 10:18 Neonat Total Bilirubin Not Reportable 09/09/20 10:18 Neonat Direct Bilirubin Not Reportable 09/09/20 10:18 Neonat Indirect Bili Not Reportable 09/09/20 10:18 AST 20 U/L (17-59) 09/09/20 10:18 ALT 17 U/L (<50) 09/09/20 10:18 Alkaline Phosphatase 54 U/L (38-126) 09/09/20 10:18 Creatine Kinase 39 U/L (55-170) L 09/09/20 10:18 CK-MB (CK-2) 0.43 ng/mL (<4.55) 09/09/20 10:18 Troponin I < 0.012 ng/mL 09/09/20 19:55 Total Protein 6.9 g/dL (6.3-8.2) 09/09/20 10:18 Albumin 4.2 g/dL (3.5-5.0) 09/09/20 10:18 Triglycerides 221 mg/dL (<150) H 09/10/20 05:42 Cholesterol 143.43 mg/dL (0-200) 09/10/20 05:42 LDL Cholesterol Direct 73 mg/dL (<100) 09/10/20 05:42 VLDL Cholesterol 44.2 mg/dL (10-31) H 09/10/20 05:42 HDL Cholesterol 35 mg/dL (>40) L 09/10/20 05:42 09/09/20 09/09/20 09/09/20 10:18 13:27 19:55 CK-MB (CK-2) 0.43 Troponin I < 0.012 < 0.012 < 0.012 Impressions: Chest X-Ray 09/09/20 10:16 IMPRESSION: No acute cardiopulmonary disease. Hyperinflated lungs which can be seen with obstructive lung disease. Plan Time Spent: Greater than 30 Minutes Stroke Is this a Stroke Patient?: No Acute Heart Failure Is this a Heart Failure Patient?: No
--- NOTE | 2020-09-10 17:18 | EKG REPORT ---
SEVERITY:- ABNORMAL ECG - SINUS RHYTHM RBBB AND LAFB LEFT VENTRICULAR HYPERTROPHY : Confirmed by: Chu Munoz 10-Sep-2020 17:18:04
== END 2020-09-10 13:22 | disposition home or self-care (01) ==
LOC: ER 10:15 → INTOOBSV 15:37 → EH 15:37 → 4W 17:41
PROVIDERS: ADMIT Internal Medicine; ATTEND Family Medicine
DX: R07.9 Chest pain, unspecified (principal); E11.9 Type 2 diabetes mellitus without complications; G20 Parkinson's disease; R55 Syncope and collapse; F45.8 Other somatoform disorders; K21.9 Gastro-esophageal reflux disease without esophagitis; I45.2 Bifascicular block; R11.0 Nausea; R26.9 Unspecified abnormalities of gait and mobility; E78.5 Hyperlipidemia, unspecified; J45.909 Unspecified asthma, uncomplicated; M13.852 Other specified arthritis, left hip; M13.851 Other specified arthritis, right hip; Z79.899 Other long term (current) drug therapy; Z79.84 Long term (current) use of oral hypoglycemic drugs; Z86.69 Personal history of other diseases of the nervous system and sense organs; Z87.891 Personal history of nicotine dependence; Z82.49 Family history of ischemic heart disease and other diseases of the circulatory system; Z86.73 Personal history of transient ischemic attack (TIA), and cerebral infarction without residual deficits
CPT/HCPCS: 93005 ×2; 99285; 36415 ×2; 82553; 82962 ×2; 82550; 85025; 80053; 84484; 83036; 80061; 71045; 93010 ×2; G0378 ×2; A9270 ×13; J3490

== ENCOUNTER → 2020-11-02 | Outpatient (CLI) | payer MEDICARE, OTHER ==
[2020-11-02 10:05] LABS: ABSOLUTE BASOPHILS # (AUTO) 0.1 10^3/uL (0.0-0.2); ABSOLUTE EOSINOPHILS # (AUTO) 0.4 10^3/uL (0.0-0.6); ABSOLUTE LYMPHOCYTES (AUTO) 1.4 10^3/uL (0.5-4.7); ABSOLUTE MONOCYTES (AUTO) 0.4 10^3/uL (0.1-1.4); ABSOLUTE NEUT (AUTO) 3.3 10^3/uL (1.7-8.2); BASOPHILS % (AUTO) 1.3 % (0-2); HEMATOCRIT 32.4 % (37.9-51.0); HEMOGLOBIN 10.6 g/dL (13.5-17.0); MEAN CORPUSCULAR HEMOGLOBIN 25.3 pg (27.0-33.4); MEAN CORPUSCULAR HGB CONC 32.8 g/dL (32.0-36.0); MEAN CORPUSCULAR VOLUME 77 fl (80-97); MONOCYTES % (AUTO) 7.9 % (3-13); PLATELET COUNT 202 10^3/uL (150-450); RED BLOOD COUNT 4.19 10^6/uL (4.35-5.55); RED CELL DISTRIBUTION WIDTH 16.4 % (11.5-14.0); SEGMENTED NEUTROPHILS % (AUTO) 58.8 % (42-78); TOTAL CELLS COUNTED % (AUTO) 100 %; WHITE BLOOD COUNT 5.6 10^3/uL (4.0-10.5)
[2020-11-02 10:23] LABS: ALBUMIN 3.9 g/dL (3.5-5.0); ALKALINE PHOSPHATASE 54 U/L (38-126); ANION GAP 7 (5-19); ASPARTATE AMINO TRANSFERASE 21 U/L (17-59); BILIRUBIN,DIRECT 0.3 mg/dL (0.0-0.4); BILIRUBIN,TOTAL 0.5 mg/dL (0.2-1.3); BLOOD UREA NITROGEN 16 mg/dL (7-20); CALCIUM 9.1 mg/dL (8.4-10.2); CARBON DIOXIDE 33 mmol/L (22-30); CHLORIDE 103 mmol/L (98-107); CHOLESTEROL 163.54 mg/dL (0-200); GLUCOSE 88 mg/dL (75-110); POTASSIUM 4.1 mmol/L (3.6-5.0); TOTAL PROTEIN 6.6 g/dL (6.3-8.2); TRIGLYCERIDES 206 mg/dL (<150)
[2020-11-02 10:34] LABS: DIRECT LDL 89 mg/dL (<100)
[2020-11-02 10:40] LABS: VLDL CHOLESTEROL 41.2 mg/dL (10-31)
[2020-11-04 04:36] LABS: CREATININE URINE 123.4 mg/dL (Not Estab.)
== END ==
LOC: OD 08:34
PROVIDERS: ATTEND Internal Medicine
DX: E11.9 Type 2 diabetes mellitus without complications (principal); I10 Essential (primary) hypertension; E78.5 Hyperlipidemia, unspecified; R53.83 Other fatigue
CPT/HCPCS: 36415; 80053; 80061; 82043; 82570; 83036; 84443; 85025